=== PATIENT | male | born 1960 | race Caucasian/White ===

== ENCOUNTER 2019-01-19 13:45 | Outpatient (CLI) | payer OTHER | END 2019-01-19 13:46 | disposition home or self-care (01) | LOC: SC 13:45 | PROVIDERS: ATTEND Internal Medicine Pulmonary Disease | DX: G47.33 Obstructive sleep apnea (adult) (pediatric) (principal); E66.9 Obesity, unspecified; Z68.38 Body mass index [BMI] 38.0-38.9, adult | CPT/HCPCS: 99203; 99212 ==

== ENCOUNTER 2019-01-20 19:34 | Outpatient (CLI) | payer OTHER | END 2019-01-20 19:35 | disposition home or self-care (01) | LOC: SC 19:34 | PROVIDERS: ATTEND Internal Medicine Pulmonary Disease | DX: G47.33 Obstructive sleep apnea (adult) (pediatric) (principal); G47.61 Periodic limb movement disorder | CPT/HCPCS: 95810 ==

== ENCOUNTER 2019-03-09 10:03 | Outpatient (CLI) | payer OTHER | END 2019-03-09 10:04 | disposition home or self-care (01) | LOC: SC 10:03 | PROVIDERS: ATTEND Internal Medicine Pulmonary Disease | DX: G47.33 Obstructive sleep apnea (adult) (pediatric) (principal); G47.61 Periodic limb movement disorder | CPT/HCPCS: 99212; 99213 ==

== ENCOUNTER 2020-10-06 11:50 | Outpatient (CLI) | payer OTHER ==
[2020-10-06 12:35] LABS: CREATININE 1.1 mg/dL (0.6-1.2)
== END 2020-10-06 11:51 | disposition home or self-care (01) ==
LOC: DI 11:50
PROVIDERS: ATTEND Internal Medicine
DX: R10.9 Unspecified abdominal pain (principal)
CPT/HCPCS: 36415; 82565

== ENCOUNTER 2020-10-19 08:02 | Outpatient (CLI) | payer OTHER ==
[2020-10-19] MEDS ORDERED: IOVERSOL 320 100 ML VIAL IVP ONE (08:13)
[2020-10-19] MEDS ORDERED: IOVERSOL 320 50 ML VIAL ONE (08:13)
--- NOTE | 2020-10-19 10:51 | CT Report ---
PROCEDURE: ABDOMEN W INDICATIONS: L LOWER QUAD PAIN CONTRAST: IV CONTRAST: Optiray 320 ml: 100 PO CONTRAST: Optiray 320 ml50 TECHNIQUE: After the administration of oral and intravenous contrast, 5 mm thick sections acquired from the diap hragms to below the iliac crests. 5 mm thick coronal and sagittal reformats were acquired. For radi ation dose reduction, the following was used: automated exposure control, adjustment of mA and/or kV according to patient size. COMPARISON: None. FINDINGS: Image quality: Excellent. Lung bases: Lung bases are clear. Heart size is normal. Bilateral gynecomastia. Solid organs: Liver is normal in size. A few small hepatic hypodensities. For example hypodensity seg ment 7 measuring 0.9 cm, (3/22). Gallbladder is nondistended. Calcified gallstone measuring 2.1 cm. Biliary system is non dilated. Pancreas enhances normally. No splenomegaly. No adrenal nodules. Ki dneys are normal in size, without hydronephrosis. Right kidney inferior pole exophytic enhancing mass measuring 2.8 x 2.6 cm, (3/53). Peritoneum and bowel: No bowel obstruction. A few loops of small bowel are mildly prominent in calibe r measuring up to 2.8 cm, (6/18). Colonic diverticulosis. No definite acute diverticulitis. Surgical clips in the left lower quadrant. No fluid collection. No pneumoperitoneum. Nodes and vessels: No retroperitoneal or mesenteric adenopathy by size criteria. Aorta and inferior vena cava are normal in size. Infrarenal IVC filter is in place. Filter arm penetration. No fluid co llection. Bones: No suspicious bony lesions. Moderate DDD. No vertebral body compression fractures. Miscellaneous: No ventral hernias. IMPRESSION: 1. Diverticulosis without definite acute diverticulitis. No fluid collection in the abdomen. 2. Small hepatic hypodensities. Favor benign cyst or hemangioma. -Review of prior cross-sectional imaging if available would be helpful to confirm stability. 3. Infrarenal IVC filter with likely chronic arm penetration. No fluid collection. 4. Exophytic mass at the inferior pole the right kidney measuring 2.8 cm. Suspicious for RCC. -Urology consultation is recommended. -MRI renal protocol could be helpful for further characterization. Reviewed by: Bayron Cano MD on 10/19/2020 10:50 AM PST Approved by: Bayron Cano MD on 10/19/2020 10:50 AM PST Station ID: [id number]
[2020-10-19] MEDS: IOVERSOL 320 50 ML VIAL PO ONE (14:18)
[2020-10-19] MEDS: IOVERSOL 320 100 ML VIAL IVP ONE (14:18)
== END 2020-10-19 08:03 | disposition home or self-care (01) ==
LOC: DI 08:02
DX: K57.30 Diverticulosis of large intestine without perforation or abscess without bleeding (principal); R93.2 Abnormal findings on diagnostic imaging of liver and biliary tract; N28.89 Other specified disorders of kidney and ureter
CPT/HCPCS: 74160; Q9967

== ENCOUNTER 2021-04-17 16:43 | Outpatient (CLI) | payer OTHER | END 2021-04-17 16:44 | disposition home or self-care (01) | LOC: COV 16:43 | PROVIDERS: ATTEND Ophthalmology | DX: Z01.812 Encounter for preprocedural laboratory examination (principal); H25.12 Age-related nuclear cataract, left eye; Z20.822 Contact with and (suspected) exposure to COVID-19 ==

== ENCOUNTER 2021-04-20 08:31 | Day surgery (SDC) | payer OTHER ==
--- OUTSIDE RECORDS SUMMARY | 2021-04-20 08:33 | EXTERNAL MEDICAL SUMMARY RPT | Continuity of Care Document ---
:1960 Demographics Phone Unavailable Preferred Language Japanese Marital Status Unknown Moravian Affiliation Unknown Race Unknown Ethnic Group Unknown Author Organization [facility] Address [address] [phone] Phone Care Team Providers Name Role Phone Nicky Gorman Unavailable Unavailable Allergies Encounters Medications date description facility [id number] Cyclobenzaprine hydrochloride 10 MG Ora l Tablet [facility] [id number] Naproxen 500 MG Oral Tablet [facility] pital Problems Procedures date description facility [id number] General Physician [facility] [id number] Finding [facility] [id number] Diagnosis [facility] Results Vital Signs date measurement value source 20210418 weight_standard 274.54 lb 20210418 weight_metric 124.53 kg 20210418 temperature_standard 97.8 F 20210418 temperature_metric 36.56 C 20210418 respiration_rate 18 /min 20210418 height_standard 77 in 20210418 height_metric 195.58 cm 20210418 heart_rate 55 /min 20210418 BP_systolic 133 mm[Hg] 20210418 BP_diastolic 71 mm[Hg] 20210418 BMI 32.5 kg/m2
[2021-04-20] MEDS ORDERED: TRIAMCIN/MOXIFLOX OPHTHALMIC 0.6 ML VIAL IO ONE ×2 (08:51→10:24)
[2021-04-20] MEDS ORDERED: BRIMONIDINE 0.2% OPHTH DROPS 5 ML ONE (08:52)
[2021-04-20] MEDS ORDERED: BSS/LIDOCAINE/EPINEPHRINE 1 ML SYRINGE ONE (08:52)
[2021-04-20] MEDS ORDERED: TIMOLOL 0.5% OPHTH DROPS ONE (08:52)
[2021-04-20] MEDS ORDERED: VANCOMYCIN OPHTHALMI 8MG/0.8ML 8 MG/0.8 ML SYRINGE IO ONE ×2 (08:52→10:25)
[2021-04-20] MEDS ORDERED: EPINEPHrine 1 MG/ML AMP ONE (08:52)
[2021-04-20] MEDS ORDERED: KETOROLAC 0.45% OPHTH DROPS ONE (09:20)
[2021-04-20] MEDS ORDERED: PROPARACAINE 0.5% OPHTH DROPS 15 ML ONE (09:20)
[2021-04-20] MEDS ORDERED: PROPARACAINE 0.5% OPHTH DROPS 15 ML LEFTEYE ONE (09:32)
[2021-04-20] MEDS ORDERED: CYCLOPENTOLATE 2% OPHTH DROPS 2 ML LEFTEYE ONE (09:40)
[2021-04-20] MEDS ORDERED: PHENYLEPHRINE 2.5% OPHTH 2 ML DROPS LEFTEYE ONE (09:40)
[2021-04-20] MEDS ORDERED: LACTATED RINGERS 500 ML IV ONE ×2 (09:43→10:35)
--- NOTE | 2021-04-20 10:08 | ANESTHESIA ---
Pre-Anesthesia VS, & Labs - Diagnosis L nuclear sclerotic cataract - Procedure L extraction cataract w/IOL Vital Signs: Temp Pulse Resp BP Pulse Ox 36.5 C 50 L 14 142/85 H 99 04/20/21 09:27 04/20/21 09:27 04/20/21 09:27 04/20/21 09:27 04/20/21 09:27 Height: 6 ft 5 in Weight (kg): 125 kg Body Mass Index: 32.6 BMI Classification: Obese - NPO >8 hours - Lab Results Lab results reviewed: Yes Home Medications and Allergies Home Medications: Ambulatory Orders Diltiazem HCl [Tiazac] 180 mg PO BID 04/19/21 LORazepam [Lorazepam] 2 mg PO DAILY 04/19/21 Melatonin 12 mg PO DAILY PM 04/19/21 Metoprolol Tartrate [Lopressor] 100 mg PO BID 04/19/21 Omeprazole Magnesium 20 mg PO DAILY 04/19/21 Rivaroxaban [Xarelto] 20 mg PO DAILY 04/19/21 traZODone [Desyrel] 200 mg PO HS 04/19/21 Diltiazem HCl [Tiazac] 180 mg PO BID 04/19/21 LORazepam [Lorazepam] 2 mg PO DAILY 04/19/21 Melatonin 12 mg PO DAILY PM 04/19/21 Metoprolol Tartrate [Lopressor] 100 mg PO BID 04/19/21 Omeprazole Magnesium 20 mg PO DAILY 04/19/21 Rivaroxaban [Xarelto] 20 mg PO DAILY 04/19/21 traZODone [Desyrel] 200 mg PO HS 04/19/21 Allergies/Adverse Reactions: Allergies Allergy/AdvReac Type Severity Reaction Status Date / Time No Known Drug Allergies Allergy Verified 04/19/21 15:32 Anes History & Medical History - Anesthetic History Anesthesia Complications: reports: No previous complications Family history of Anesthesia Complications: Denies Family history of Malignant Hyperthermia: Denies - Medical History Cardiovascular: reports: Congestive heart failure, Hypertension, High cholesterol, Deep vein thrombosis, Atrial fibrillation (intermittent, NSR today) Pulmonary: reports: Sleep apnea Gastrointestinal: reports: GERD, Hiatal hernia Urinary: reports: None Musculoskeletal: reports: Osteoarthritis, Chronic back pain Endocrine/Autoimmune: reports: None Skin: reports: None - Surgical History General: reports: Appendectomy Orthopedic: reports: Knee replacement, Other Exam General: Alert, Oriented x3, Cooperative Dental: WNL Mouth Openin Fingerbreadth Neck Mobility: Normal Mallampati classification: II Thyromental Distance: 4-6 cm Respiratory: Lungs clear, Normal breath sounds, No respiratory distress Cardiovascular: Regular rate Mental/Cognitive Status: Alert/Oriented X3 Cognitive Status: Within normal limits Plan Anesthesia Type: MAC Consent for Procedure(s) Verified and Reviewed: Yes Code Status: Attempt Resuscitation ASA classification: 3-Severe systemic disease Is this case an emergency?: No
[2021-04-20] MEDS ORDERED: MIDAZOLAM 2 MG/2 ML VIAL ONE (10:12)
[2021-04-20] MEDS ORDERED: fentaNYL 100 MCG/2 ML VIAL ONE (10:21)
[2021-04-20] MEDS ORDERED: BRIMONIDINE 0.2% OPHTH DROPS 5 ML OPTH ONE (10:23)
[2021-04-20] MEDS ORDERED: EPINEPHrine 1 MG/ML AMP IR ONE (10:23)
[2021-04-20] MEDS ORDERED: TIMOLOL 0.5% OPHTH DROPS OPTH ONE (10:24)
[2021-04-20] MEDS ORDERED: CHONDR SULF/HYALURONATE SYRINGE IO ONE (10:24)
[2021-04-20] MEDS ORDERED: BSS/LIDOCAINE/EPINEPHRINE 1 ML SYRINGE IO ONE (10:24)
[2021-04-20] MEDS ORDERED: PROPARACAINE 0.5% OPHTH DROPS 15 ML EACHEYE ONE (10:24)
--- NOTE | 2021-04-20 10:40 | OPERATIVE REPORT ---
Operative Report - Other Other Information/Narrative: Date of Surgery: 04/20/21 Preop Dx: Visually significant cataract left eye. This was the first cataract surgery. Postop Dx: Same Procedure: Phacoemulsification with posterior chamber intraocular lens implant left eye Surgeon: Dr. Ismael Ferrara Anesthesia: Monitored anesthesia care Complications: None Operative Indications: This is a 60-year-old M with progressive vision loss in the left eye due to 2+ nuclear sclerotic.. Best corrected visual acuity was 20/30 with glare to 20/50 vision in the left eye. Indications for surgery were: - Overall decrease in vision - Difficultydriving in low light or at night - Difficulty driving at night because of headlights from other vehicles - Difficulty tracking a golf ball The patient was consented at length concerning the risks and benefits of cataract surgery after which the patient expressed a desire to proceed with surgery. Operative Procedure: The patient was taken into OR#3 and placed under monitored anesthesia care. A surgical time-out was conducted confirming correct patient, correct procedure, and correct surgical site. The patient was given topical anesthesia and then prepped and draped in the usual sterile fashion. The eye was entered at the 6 and 3 oclock positions. Intracameral Shugarcaine was injected into the anterior chamber followed by a dispersive viscoelastic. A continuous-tear curvilinear capsulorhexis was performed. The nucleus was hydrodissected and phacoemulsified. The cortex was evacuated using automated infusion and aspiration. A cohesive viscoelastic was injected into the capsular bag and a 13.5 diopter intraocular lens was inserted into the bag. Infusion and aspiration were used to evacuate the viscoelastic materials from the eye. The wounds were hydrated and the eye inflated to physiologic pressure using balanced salt solution. Approximately 0.25ml of a mixture of triamcinolone and moxifloxacin was injected trans-sclerally into the vitreous in the inferotem poral quadrant using a 30 gauge cannula. An additional 0.55ml of a mixture of triamcinolone, moxifloxacin, and vancomycin was injected subconjunctivally in the superior quadrant for infection and inflammation prophylaxis. Wound integrity was checked with Weck-Shanae sponges. The patient was taken from the operating room in good condition and given post-op instructions.
[2021-04-20 10:52] VITALS: BP 128/84
--- NOTE | 2021-04-20 13:43 | ANESTHESIA POST OP EVALUATION ---
Anesthesia Post Eval - Post Anesthesia Eval Vitals: Last Vital Signs Temp 36.6 C 04/20/21 10:50 Pulse 50 L 04/20/21 10:50 Resp 16 04/20/21 10:50 BP 128/84 H 04/20/21 10:50 Pulse Ox 96 04/20/21 10:50 CV Function Including HR & BP: Stable Pain Control: Satisfactory Nausea & Vomiting: Negative Mental Status: Baseline Respiratory Status: Airway Patent Hydration Status: Satisfactory Anesthesia Complications: None
== END 2021-04-20 08:32 | disposition home or self-care (01) ==
LOC: SDS 08:31
PROVIDERS: ATTEND Ophthalmology
DX: H25.12 Age-related nuclear cataract, left eye (principal); I48.91 Unspecified atrial fibrillation; Z79.01 Long term (current) use of anticoagulants; G47.33 Obstructive sleep apnea (adult) (pediatric); E66.9 Obesity, unspecified; Z68.32 Body mass index [BMI] 32.0-32.9, adult; Z79.899 Other long term (current) drug therapy
CPT/HCPCS: 66984; A9270; J3490; J7120

== ENCOUNTER 2021-06-01 06:33 | Day surgery (SDC) | payer OTHER ==
[~2021-06-01 06:33] MED LIST: CYCLOPENTOLATE 1% OPHTH DROPS 2 ML ONE; KETOROLAC 0.45% OPHTH DROPS ONE; PHENYLEPHRINE 2.5% OPHTH 2 ML DROPS ONE; PROPARACAINE 0.5% OPHTH DROPS 15 ML ONE
[2021-06-01] MEDS ORDERED: EPINEPHrine 1 MG/ML AMP ONE (06:54)
[2021-06-01] MEDS ORDERED: BSS/LIDOCAINE/EPINEPHRINE 1 ML SYRINGE ONE (06:54)
[2021-06-01] MEDS ORDERED: VANCOMYCIN OPHTHALMI 8MG/0.8ML 8 MG/0.8 ML SYRINGE IO ONE ×2 (06:54→08:14)
[2021-06-01] MEDS ORDERED: TRIAMCIN/MOXIFLOX OPHTHALMIC 0.6 ML VIAL IO ONE ×2 (06:54→08:14)
[2021-06-01] MEDS ORDERED: BRIMONIDINE 0.2% OPHTH DROPS 5 ML ONE (06:54)
[2021-06-01] MEDS ORDERED: TIMOLOL 0.5% OPHTH DROPS ONE (06:54)
[2021-06-01] MEDS ORDERED: LACTATED RINGERS 1,000 ML IV ONE ×2 (06:58→08:22)
--- NOTE | 2021-06-01 07:22 | ANESTHESIA ---
Pre-Anesthesia VS, & Labs - Diagnosis R cataract - Procedure R PhacoIOL Vital Signs: Temp Pulse Resp BP Pulse Ox 36 C L 56 L 14 141/77 H 96 06/01/21 07:00 06/01/21 07:00 06/01/21 07:00 06/01/21 07:00 06/01/21 07:00 Height: 6 ft 5 in Weight (kg): 123.6 kg Body Mass Index: 32.3 BMI Classification: Obese - NPO >8 hours Home Medications and Allergies Melatonin 12 mg PO DAILY PM 04/19/21 Metoprolol Tartrate [Lopressor] 100 mg PO BID 04/19/21 Omeprazole Magnesium 20 mg PO DAILY 04/19/21 Rivaroxaban [Xarelto] 20 mg PO DAILY 04/19/21 dilTIAZem HCL [Tiazac] 180 mg PO BID 04/19/21 traZODone [Desyrel] 200 mg PO HS 04/19/21 Allergies/Adverse Reactions: Allergies Allergy/AdvReac Type Severity Reaction Status Date / Time No Known Drug Allergies Allergy Verified 04/19/21 15:32 Anes History & Medical History - Anesthetic History Anesthesia Complications: reports: No previous complications Family history of Anesthesia Complications: Denies Family history of Malignant Hyperthermia: Denies - Medical History Cardiovascular: reports: Congestive heart failure, Hypertension, High cholesterol, Atrial fibrillation Pulmonary: reports: Sleep apnea Gastrointestinal: reports: GERD Urinary: reports: None Musculoskeletal: reports: None Endocrine/Autoimmune: reports: None Skin: reports: None - Surgical History Orthopedic: reports: Knee replacement, Other Exam General: Alert, Oriented x3, Cooperative Dental: WNL Mouth Openin Fingerbreadth Neck Mobility: Normal Mallampati classification: II Thyromental Distance: 4-6 cm Respiratory: Lungs clear Plan Anesthesia Type: MAC Consent for Procedure(s) Verified and Reviewed: Yes Code Status: Attempt Resuscitation ASA classification: 3-Severe systemic disease Is this case an emergency?: No
[2021-06-01] MEDS ORDERED: MIDAZOLAM 2 MG/2 ML VIAL ONE (07:38)
[2021-06-01] MEDS ORDERED: fentaNYL 100 MCG/2 ML VIAL ONE (07:41)
[2021-06-01] MEDS ORDERED: BRIMONIDINE 0.2% OPHTH DROPS 5 ML OPTH ONE (08:12)
[2021-06-01] MEDS ORDERED: EPINEPHrine 1 MG/ML AMP IR ONE (08:12)
[2021-06-01] MEDS ORDERED: BSS/LIDOCAINE/EPINEPHRINE 1 ML SYRINGE IO ONE (08:13)
[2021-06-01] MEDS ORDERED: TIMOLOL 0.5% OPHTH DROPS OPTH ONE (08:13)
[2021-06-01] MEDS ORDERED: CHONDR SULF/HYALURONATE SYRINGE IO ONE (08:13)
[2021-06-01] MEDS ORDERED: PROPARACAINE 0.5% OPHTH DROPS 15 ML EACHEYE ONE (08:14)
[2021-06-01 08:32] VITALS: BP 120/67
--- NOTE | 2021-06-01 08:33 | OPERATIVE REPORT ---
Operative Report - Other Other Information/Narrative: Date of Surgery: 06/01/21 Preop Dx: Visually significant cataract right eye. Cataract surgery was performed in the left eye on 03/31/21. Postop Dx: Same Procedure: Phacoemulsification with posterior chamber intraocular lens implant right eye Surgeon: Dr. Ismael Ferrara Anesthesia: Monitored anesthesia care Complications: None Operative Indications: This is a 60-year-old M with progressive vision loss in the right eye due to 2+ nuclear sclerotic cataract. Best corrected visual acuity was 20/50 with glare to 20/70 vision in the right eye. Indications for surgery were: - Overall decrease in vision - Difficulty seeing words on a computer screen - Difficulty reading - Difficulty driving in low light or at night - Difficulty driving at night because of headlights from other vehicles - Difficulty tracking a golf ball - Decreased acuity with firearms The patient was consented at length concerning the risks and benefits of cataract surgery after which the patient expressed a desire to proceed with surgery. Operative Procedure: The patient was taken into OR#3 and placed under monitored anesthesia care. A surgical time-out was conducted confirming correct patient, correct procedure, and correct surgical site. The patient was given topical anesthesia and then prepped and draped in the usual sterile fashion. The eye was entered at the 6 and 3 oclock positions. Intracameral Shugarcaine was injected into the anterior chamber followed by a dispersive viscoelastic. A continuous-tear curvilinear capsulorhexis was performed. The nucleus was hydrodissected and phacoemulsified. The cortex was evacuated using automated infusion and aspiration. A cohesive viscoelastic was injected into the capsular bag and a 11.5 diopter intraocular lens was inserted into the bag. Infusion and aspiration were used to evacuate the viscoelastic materials from the eye. The wounds were hydrated and the eye inflated to physiologic pressure using balanced salt solution. Approximately 0.25ml of a mixture of triamcinolone and moxifloxacin was injected trans-sclerally into the vitreous in the inferotemporal quadrant using a 30 gauge cannula. An additional 0.55ml of a mixture of triamcinolone, moxifloxacin, and vancomycin was injected subconjunctivally in the superior quadrant for infection and inflammation prophylaxis. Wound integrity was checked with Weck-Shanae sponges. The patient was taken from the operating room in good condition and given post-op instructions.
--- NOTE | 2021-06-01 10:02 | ANESTHESIA POST OP EVALUATION ---
Anesthesia Post Eval - Post Anesthesia Eval Vitals: Last Vital Signs Temp 36 C L 06/01/21 08:31 Pulse 57 L 06/01/21 08:31 Resp 12 06/01/21 08:31 BP 120/67 06/01/21 08:31 Pulse Ox 96 06/01/21 08:31 CV Function Including HR & BP: Stable Pain Control: Satisfactory Nausea & Vomiting: Negative Mental Status: Baseline Respiratory Status: Airway Patent Hydration Status: Satisfactory Anesthesia Complications: None
== END 2021-06-01 06:34 | disposition home or self-care (01) ==
LOC: SDS 06:33
PROVIDERS: ATTEND Ophthalmology
DX: H25.11 Age-related nuclear cataract, right eye (principal); Z98.42 Cataract extraction status, left eye; E66.9 Obesity, unspecified; Z68.32 Body mass index [BMI] 32.0-32.9, adult; I11.0 Hypertensive heart disease with heart failure; I50.9 Heart failure, unspecified; G47.33 Obstructive sleep apnea (adult) (pediatric); I48.91 Unspecified atrial fibrillation
CPT/HCPCS: 66984; A9270; J3490; J7120

== ENCOUNTER 2022-11-15 11:22 | Outpatient (CLI) | payer OTHER ==
--- NOTE | 2022-11-15 17:06 | XRAY Report ---
PROCEDURE: Knee 3 View LT INDICATIONS: L KNEE PX TECHNIQUE: 3 views of the left knee(s) were acquired. COMPARISON: None. FINDINGS: Bones: Patient is status post prior left total knee arthroplasty. Left knee alignment is anatomic. N o gross hardware loosening or failure. No fractures or dislocations. No suspicious bony lesions. Soft tissues: No joint effusion. No suspicious soft tissue calcifications. IMPRESSION: Prior left total knee arthroplasty. Anatomic left knee alignment. No fracture or disloca tion. No gross hardware complication. No significant joint effusion. Reviewed by: Charles Phelps MD on 11/15/2022 5:04 PM PST Approved by: Charles Phelps MD on 11/15/2022 5:04 PM PST Station ID: [id number]
== END 2022-11-15 11:23 | disposition home or self-care (01) ==
LOC: DI.N 11:22
PROVIDERS: ATTEND Internal Medicine
DX: M25.562 Pain in left knee (principal); Z96.652 Presence of left artificial knee joint

== ENCOUNTER 2023-09-02 09:34 | Outpatient (CLI) | payer OTHER ==
--- NOTE | 2023-09-02 14:20 | MRI Report ---
PROCEDURE: CERVICAL SPINE WO INDICATIONS: NECK PAIN TECHNIQUE: Noncontrast sagittal T1 spin echo and T2 fast spin echo, sagittal STIR, foraminal oblique sagittal T2 fast spin echo, and axial gradient echo or T2 fast spin echo through the cervical spine. COMPARISON: None. FINDINGS: Image quality: Excellent. Alignment and Curvature: There is normal bony alignment. Bone Marrow: Marrow demonstrates normal overall signal. Spinal Cord: Visualized spinal cord has normal size and signal. No cerebellar tonsillar herniation. Paraspinous Soft Tissues: No paravertebral masses. Prevertebral soft tissues are normal in thicknes s. C2-C3: No disc bulge. The foramina and central canal are patent. C3-C4: No significant disc bulge. Uncovertebral hypertrophy and facet hypertrophy cause mild bilate ral foraminal stenosis. The central canal is patent. C4-C5: No significant disc bulge. Uncovertebral hypertrophy and facet hypertrophy. Severe bilateral foraminal stenosis. The central canal is patent. C5-C6: No significant disc bulge. Uncovertebral hypertrophy and facet hypertrophy. Severe left murray inal stenosis. Moderate right foraminal stenosis. The central canal is patent. C6-C7: No disc bulge. The foramina and central canal are patent. C7-T1: No disc bulge. The foramina and central canal are patent. IMPRESSION: 1. Multilevel cervical spondylosis causing foraminal stenosis at multiple levels primarily due to unc overtebral hypertrophy. 2. No central canal stenosis. 3. No abnormal cord signal. Reviewed by: Lorenzo Slade on 09/02/2023 2:19 PM PDT Approved by: Lorenzo Slade on 09/02/2023 2:19 PM PDT Station ID: [id number]
== END 2023-09-02 09:35 | disposition home or self-care (01) ==
LOC: DI 09:34
PROVIDERS: ATTEND Internal Medicine
DX: M47.812 Spondylosis without myelopathy or radiculopathy, cervical region (principal)

== ENCOUNTER 2023-11-08 15:47 | Outpatient (CLI) | payer OTHER ==
--- NOTE | 2023-11-09 09:41 | Ultrasound Report ---
PROCEDURE: Retroperitoneal INDICATIONS: RENAL MASS TECHNIQUE: Real-time scanning was performed of the retroperitoneal organs, with image documentation. COMPARISON: CT abdomen 10/19/2020. FINDINGS: Kidneys: Kidneys are normal in size. Right kidney measures 13.0 cm long; left kidney measures 12.9 cm long. Right renal cortical thickness is 1.9 cm; left renal cortical thickness is 1.6 cm. No dennise d masses, hydronephrosis, or nephrolithiasis. At the interpolar region of the right kidney, there is an exophytic circumscribed anechoic cyst measuring 3.1 x 2.9 x 3.1 cm. No solid renal mass is seen. Bladder: Pre-void bladder volume is 955 mL. Post-void residual is 20 mL. Pre-void images demonstra te no intraluminal masses or stones. On pre-void images, bilateral ureteral jets are noted with colo r Doppler interrogation. (Of note, ureteral jets may not be detectable in up to 25% of cases due to insufficient differences in specific gravity between ureteral and bladder urine). Miscellaneous: No free abdominal fluid. Prostate is enlarged and measures 5.2 x 4.2 x 5.3 cm. IMPRESSION: Exophytic 3.1 cm cyst in the right kidney likely corresponds to the masslike lesion seen on CT from 12/19/2019 and is considered benign. No solid renal mass is seen. Reviewed by: Zion Bae MD on 11/09/2023 9:39 AM PST Approved by: Zion Bae MD on 11/09/2023 9:39 AM PST Station ID: [id number]
== END 2023-11-08 15:48 | disposition home or self-care (01) ==
LOC: DI 15:47
PROVIDERS: ATTEND Internal Medicine
DX: N28.89 Other specified disorders of kidney and ureter (principal); N28.1 Cyst of kidney, acquired

== ENCOUNTER 2023-11-15 08:20 | Outpatient (CLI) | payer OTHER ==
[2023-11-15 12:36] LABS: BASOPHILS % (AUTO) 0.4 %; EOSINOPHILS # (AUTO) 0.1 10^3/uL (0.0-0.7); EOSINOPHILS % (AUTO) 1.3 %; HCT - HEMATOCRIT 44.9 % (42.0-52.0); HGB - HEMOGLOBIN 14.9 g/dL (14.0-18.0); LYMPHOCYTES # (AUTO) 1.6 10^3/uL (1.5-3.5); LYMPHOCYTES % (AUTO) 23.3 %; MEAN CORPUSCULAR HEMOGLOBIN 31.1 pg (27.0-31.0); MEAN CORPUSCULAR HGB CONC 33.2 g/dL (32.0-36.0); MEAN CORPUSCULAR VOLUME 93.7 fL (80.0-94.0); MEAN PLATELET VOLUME 9.7 fL (7.4-11.4); MONOCYTES # (AUTO) 0.5 10^3/uL (0.0-1.0); MONOCYTES % (AUTO) 7.5 %; NEUTROPHILS # (AUTO) 4.7 10^3/uL (1.5-6.6); NEUTROPHILS % (AUTO) 67.2 %; PLT - PLATELET COUNT 191 10^3/uL (130-450); RED BLOOD COUNT 4.79 10^6/uL (4.70-6.10); RED CELL DISTRIBUTION WIDTH 12.9 % (12.0-15.0); WHITE BLOOD COUNT 6.9 x10^3/uL (4.8-10.8)
[2023-11-15 13:29] LABS: PSA TOTAL 1.913 ng/mL (0.000-2.000)
[2023-11-15 13:31] LABS: ALBUMIN 4.5 g/dL (3.2-5.5); ALBUMIN/GLOBULIN RATIO 1.6 (1.0-2.2); ALKALINE PHOSPHATASE 40 IU/L (42-121); ALT ALANINE AMINOTRANSFERASE 22 IU/L (10-60); AST ASPARTATE AMINOTRANSFERASE 25 IU/L (10-42); BILIRUBIN,TOTAL 0.9 mg/dL (0.2-1.0); BUN - BLOOD UREA NITROGEN 17 mg/dL (6-20); CALCIUM 9.7 mg/dL (8.5-10.3); CARBON DIOXIDE - CO2 26 mmol/L (21-32); CHLORIDE 103 mmol/L (101-111); CHOL/HDL RATIO 2.8 (<5.0); CHOLESTEROL 175 mg/dL; CREATININE 1.1 mg/dL (0.6-1.3); GFR - MDRD 67 (>89); GLUCOSE 107 mg/dL (74-104); HDL CHOLESTEROL 62 mg/dL; LDL CHOLESTEROL,CALCULATED 100 mg/dL; LDL/HDL RATIO 1.6 (<3.6); POTASSIUM 4.5 mmol/L (3.5-4.5); SODIUM 139 mmol/L (135-145); TOTAL PROTEIN 7.4 g/dL (6.4-8.9); TRIGLYCERIDES 67 mg/dL (48-352); VLDL CHOLESTEROL 13 mg/dL
[2023-11-15 13:37] LABS: THYROID STIMULATING HORMONE 0.93 uIU/mL (0.34-5.60)
== END 2023-11-15 08:21 | disposition home or self-care (01) ==
LOC: LAB.N 08:20
PROVIDERS: ATTEND Internal Medicine
DX: Z00.00 Encounter for general adult medical examination without abnormal findings (principal); I48.91 Unspecified atrial fibrillation; F31.9 Bipolar disorder, unspecified; J44.9 Chronic obstructive pulmonary disease, unspecified; I11.0 Hypertensive heart disease with heart failure; G62.9 Polyneuropathy, unspecified
CPT/HCPCS: 36415; 80053; 80061; 83721; 84153; 84443; 85025

== ENCOUNTER 2024-01-25 09:53 | Emergency (ER) | payer OTHER ==
[2024-01-25 10:40] LABS: BILIRUBIN,URINE NEGATIVE (NEGATIVE); GLUCOSE, URINE (UA) NEGATIVE (NEGATIVE); KETONES,URINE (UA) NEGATIVE (NEGATIVE); LEUKOCYTE ESTERASE, URINE NEGATIVE (NEGATIVE); NITRITE,URINE NEGATIVE (NEGATIVE); OCCULT BLOOD,URINE NEGATIVE (NEGATIVE); PH,URINE 6.5 PH (5.0-7.5); PROTEIN,URINE NEGATIVE (NEGATIVE); UROBILINOGEN,URINE 0.2 (NORMAL) E.U./dL (NORMAL)
[2024-01-25 10:48] LABS: CLARITY,URINE CLEAR (CLEAR)
[2024-01-25 10:49] LABS: BASOPHILS % (AUTO) 0.4 %; EOSINOPHILS # (AUTO) 0.1 10^3/uL (0.0-0.7); EOSINOPHILS % (AUTO) 1.4 %; HCT - HEMATOCRIT 41.5 % (42.0-52.0); HGB - HEMOGLOBIN 13.9 g/dL (14.0-18.0); LYMPHOCYTES # (AUTO) 1.5 10^3/uL (1.5-3.5); LYMPHOCYTES % (AUTO) 17.8 %; MEAN CORPUSCULAR HEMOGLOBIN 29.8 pg (27.0-31.0); MEAN CORPUSCULAR HGB CONC 33.5 g/dL (32.0-36.0); MEAN CORPUSCULAR VOLUME 89.1 fL (80.0-94.0); MEAN PLATELET VOLUME 8.8 fL (7.4-11.4); MONOCYTES # (AUTO) 0.5 10^3/uL (0.0-1.0); MONOCYTES % (AUTO) 6.2 %; NEUTROPHILS # (AUTO) 6.3 10^3/uL (1.5-6.6); PLT - PLATELET COUNT 194 10^3/uL (130-450); RED BLOOD COUNT 4.66 10^6/uL (4.70-6.10); RED CELL DISTRIBUTION WIDTH 12.8 % (12.0-15.0); WHITE BLOOD COUNT 8.6 x10^3/uL (4.8-10.8)
--- NOTE | 2024-01-25 10:58 | ED Physician Documentation ---
PD HPI ABD PAIN - Stated complaint Stated Complaint: LOWER STOMACH PX - Chief complaint Chief Complaint: Abd Pain - History obtained from History obtained from: Patient - History of Present Illness Timing - onset: How many months ago (1) Timing - duration: Months (1) Timing - details: Gradual onset, Still present, Waxing and waning Quality: Cramping, Aching, Pain Location: Periumbilical, Suprapubic, LLQ Radiation: No: Chest, Lower back, Left flank Improved by: BM, Other (hurts with urinating, but more comfortable lower abd after voiding. He does feel taht he is emptying when goes.). No: Eating Worsened by: No: Eating Associated symptoms: Nausea, Dysuria. No: Fever, Vomiting, Diarrhea, Constipation, Hematuria, Loss of appetite, Testicular pain Similar symptoms before: Has not had sx before Recently seen: Clinic, Emergency Dept (seen at [facility] emergency dept few weeks ago and Dx with UTI. Rx with Cipro but no improvement in symptoms. Seen at [facility] yesterday and Rx doxycycline for presume persistent UTI given his symptoms. He states no better and cramps worse.), Other (he had hematoma in leg month ago and was to get it evacuated by ortho but they did not want to with current UTI symptoms. Had ordered labs of ESR, CRP, CBC and chemistry. I was getting CBC and chem panel here today, so added the ESR, CRP onto it.) Review of Systems Constitutional: denies: Fever, Chills, Myalgias GI: reports: Abdominal Pain, Nausea. denies: Vomiting, Constipation, Diarrhea : reports: Dysuria, Frequency. denies: Hesitancy, Discharge Skin: denies: Rash, Lesions PD PAST MEDICAL HISTORY - Past Medical History Cardiovascular: Congestive heart failure, Hypertension, High cholesterol, Atrial fibrillation Respiratory: Sleep apnea Endocrine/Autoimmune: None GI: GERD : None HEENT: None Psych: Depression Musculoskeletal: None Derm: None - Past Surgical History Ortho: Knee replacement, Other - Present Medications Home Medications: Ambulatory Orders Medication Instructions Recorded Confirmed Melatonin 12 mg PO DAILY PM 04/19/21 06/01/21 Metoprolol Tartrate [Lopressor] 100 mg PO BID 04/19/21 06/01/21 Omeprazole Magnesium 20 mg PO DAILY 04/19/21 06/01/21 Rivaroxaban [Xarelto] 20 mg PO DAILY 04/19/21 06/01/21 dilTIAZem HCL [Tiazac] 180 mg PO BID 04/19/21 06/01/21 traZODone [Desyrel] 200 mg PO HS 04/19/21 06/01/21 Docusate Sodium 100Mg Capsule 100 mg PO DAILY #20 cap 01/25/24 [Colace 100Mg Capsule] Doxycycline Hyclate 100 mg PO BID 7 Days #14 cap 01/25/24 Meloxicam [Mobic] 7.5 mg PO BID 10 Days #20 tablet 01/25/24 - Allergies Allergies/Adverse Reactions: Allergies Allergy/AdvReac Type Severity Reaction Status Date / Time No Known Drug Allergies Allergy Verified 01/25/24 10:14 - Social History Does the pt smoke?: No Smoking Status: Never smoker Does the pt drink ETOH?: No Does the pt have substance abuse?: No PD ED PE NORMAL - Vitals Vital signs reviewed: Yes - General General: Alert and oriented X 3, Well developed/nourished - Cardiac Cardiac: RRR, No murmur - Respiratory Respiratory: Clear bilaterally - Abdomen Abdomen: Normal bowel sounds, Soft, Non distended, No organomegaly, Other (tender left lower abd and suprapubic area with some local guarding but no percussion nor rebound tenderness. ) - Male Male : Other (no noted rash nor sores. ) - Rectal Rectal: Deferred - Back Back: No CVA TTP - Derm Derm: Normal color, Warm and dry - Extremities Extremities: Normal ROM s pain, No edema, No calf tenderness / cord - Neuro Neuro: Alert and oriented X 3, No motor deficit, Normal speech Results - Vitals Vitals: Vital Signs - 24 hr 01/25/24 15:07 Heart Rate 74 Respiratory 18 Rate Blood Pressure 147/94 H O2 Saturation 99 Oxygen O2 Source Room air - Labs Labs: Laboratory Tests 01/25/24 01/25/24 01/25/24 10:38 10:45 10:45 WBC 8.6 RBC 4.66 L Hgb 13.9 L Hct 41.5 L MCV 89.1 MCH 29.8 MCHC 33.5 RDW 12.8 Plt Count 194 MPV 8.8 Neut # (Auto) 6.3 Lymph # (Auto) 1.5 Becker # (Auto) 0.5 Eos # (Auto) 0.1 Baso # (Auto) 0.0 Absolute Nucleated RBC 0.00 Nucleated RBC % 0.0 ESR Sodium 131 L Potassium 4.3 Chloride 100 L Carbon Dioxide 23 Anion Gap 8.0 BUN 24 H Creatinine 1.0 Estimated GFR (MDRD) 75 L Glucose 127 H Calcium 9.6 Total Bilirubin 0.8 AST 38 ALT 20 Alkaline Phosphatase 47 C-Reactive Protein Total Protein 7.3 Albumin 4.2 Globulin 3.1 Albumin/Globulin Ratio 1.4 Lipase 55 Free PSA % Free PSA Total PSA Urine Color YELLOW Urine Clarity CLEAR Urine pH 6.5 Ur Specific [place] 1.010 Urine Protein NEGATIVE Urine Glucose (UA) NEGATIVE Urine Ketones NEGATIVE Urine Occult Blood NEGATIVE Urine Nitrite NEGATIVE Urine Bilirubin NEGATIVE Urine Urobilinogen 0.2 (NORMAL) Ur Leukocyte Esterase NEGATIVE Ur Microscopic Review NOT INDICATED Urine Culture Comments NOT INDICATED 01/25/24 01/25/24 01/25/24 10:45 10:45 10:45 WBC RBC Hgb Hct MCV MCH MCHC RDW Plt Count MPV Neut # (Auto) Lymph # (Auto) Becker # (Auto) Eos # (Auto) Baso # (Auto) Absolute Nucleated RBC Nucleated RBC % ESR 7 Sodium Potassium Chloride Carbon Dioxide Anion Gap BUN Creatinine Estimated GFR (MDRD) Glucose Calcium Total Bilirubin AST ALT Alkaline Phosphatase C-Reactive Protein < 0.5 Total Protein Albumin Globulin Albumin/Globulin Ratio Lipase Free PSA 0.359 % Free PSA 18 L Total PSA 1.975 Urine Color Urine Clarity Urine pH Ur Specific [place] Urine Protein Urine Glucose (UA) Urine Ketones Urine Occult Blood Urine Nitrite Urine Bilirubin Urine Urobilinogen Ur Leukocyte Esterase Ur Microscopic Review Urine Culture Comments - Rads (name of study) abd/pelvic CT Relevant Findings:: Prelim report reviewed (again noted right renal exophytic mass concerning for tumor. multiple diverticula without diverticulitis. No stones. ), EMP independent interpretation of test PD Medical Decision Making - ED course Complexity details: reviewed results (CT showing diverticula multiple but no diverticultiis. No stones. Renal mass noted suspicious for renal cell CA, suggest imaging. However this had been seen before and had US of kidney September 2023 for it, with Dx of simple cyst. It is bigger now, so consider re-imaging near future. ), re-evaluated patient (improved pain with IV meds. He was Rx doxycycline for presume persistent UTI yesterday so not much time for effect. Did PSA here and normal range so less likely prostatitis, and not seen on CT to be. I presume provider was consider urethritis rather than standar UTI. Can go with the doxysxycline. ), considered differential, d/w patient Reviewed Lab Results: pt had lab order for CBC, chem panel and ESR, CRP from his ortho to do prior to hematoma evacuation. I added the ESR, CRP to labs today so will be done. Results are normal. WBC also nromal. ED course: No alternate explanation by CT. diverticula without diverticulitis. Recent Rx for dosycycline. Presume targeting urethritis since not clearly UTI by UA, but dysuria symptoms. No diverticultiis seen so consideed but did not add Augmentin at this time. Can give NSAIDs regularly for consideration of interstitial cystitis given symptoms with nondiagnostic UA. He states some mild constipation from pain meds so docusdate as well. Has some pain meds still at home from recent Rx month ago. Departure - Departure Disposition: , Self Care Clinical Impression: Lower abdominal pain, Dysuria, Renal cyst Condition: Stable Record reviewed to determine appropriate education?: Yes Instructions: ED Abdominal Pain Unkn Cause Male Follow-Up: Nicky Barrera MD [Primary Care Provider] - Prescriptions: Docusate Sodium 100Mg Capsule [Colace 100Mg Capsule] 100 mg PO DAILY #20 cap Doxycycline Hyclate 100 mg PO BID 7 Days #14 cap Meloxicam [Mobic] 7.5 mg PO BID 10 Days #20 tablet Comments: Your CT scan does not show any obvious acute cause for your pain. You do have incidental findings of some gallstones but no signs of gallbladder inflammation. You do have some diverticula present along the colon but no localized signs of diverticulitis. They do describe a mass on your kidney and suggest further follow-up imaging. However your prior ultrasound in September was to look specifically at that. So this is a known quantity and the ultrasound in September described it as a simple cyst. Therefore the reading from today I do not believe needs following up on. Otherwise again no other description of a cause for pain. Blood test rg your urine test looked okay at this point. Your PSA for prostate is in the normal range so no signs of obvious inflammation there. Lacking specific other diagnosis, I would have you continue with the previous thought of a bladder infection given your symptoms localized to that. I wrote the prescription for the doxycycline. In addition I would suggest some anti- inflammatory and stool softener for consideration of intestinal inflammation or irritation being a cause of your pain instead. I printed out your prescriptions for these. Follow-up with your primary if not improved over the next few days and return if worse. Forms: PCP List Discharge Date/Time: 01/25/24 15:09
[2024-01-25 11:06] LABS: ALBUMIN 4.2 g/dL (3.2-5.5); ALBUMIN/GLOBULIN RATIO 1.4 (1.0-2.2); BILIRUBIN,TOTAL 0.8 mg/dL (0.2-1.0); CALCIUM 9.6 mg/dL (8.5-10.3); POTASSIUM 4.3 mmol/L (3.5-4.5); TOTAL PROTEIN 7.3 g/dL (6.4-8.9)
[2024-01-25] MEDS ORDERED: IOVERSOL 320 100 ML VIAL IVP ONE (11:51)
[2024-01-25] MEDS: SODIUM CHLORIDE 0.9% 1,000 ML IV STA (11:55)
[2024-01-25] MEDS: KETOROLAC 15 MG/ML VIAL IVP STA (11:55)
--- NOTE | 2024-01-25 13:58 | CT Report ---
PROCEDURE: CT and pelvis with contrast INDICATIONS: lower abd pain for weeks TECHNIQUE: Helical axial CT of the abdomen and pelvis was obtained after intravenous contrast adminis tration and reformatted in multiple planes. Radiation dose reduction was achieved using automated exp osure control or adjustment of mA and/or kV according to patient size. COMPARISON: 10/19/2020 FINDINGS: Lower thorax: The lung bases are clear. Heart size normal. No hiatal hernia. Liver: Hepatic fatty infiltration. Hypodense nodule in the periphery the right hepatic lobe measures 1.1 cm, similar prior. Biliary system: Laminated stone in the lumen of the gallbladder without evidence of acute cholecysti tis Pancreas: Unremarkable without mass or inflammation evident. Spleen: Normal in size and density. Adrenals: Normal morphology and density. Reproductive system: Unremarkable as visualized. Urinary system: Exophytic solid right renal mass lesion again noted, enlarged from prior now measuri ng 3.4 x 3.7 cm, previously 2.8 x 2.6 cm. Renal vein appears patent. Urinary bladder unremarkable. Gastrointestinal system: Multiple diverticuli arise from the entire colon, particularly the second p roximal sigmoid colon. No definitive evidence of active diverticulitis Appendix: No findings to suggest acute appendicitis. Peritoneal spaces: No mesenteric or retroperitoneal adenopathy. No free air. No free fluid. Vasculature: Infrarenal IVC filter in place Abdominal wall: Abdominal wall is intact without evidence of ventral or inguinal hernias. Musculoskeletal: Degenerative disc disease and arthropathy noted in the lower lumbar spine IMPRESSION: Colonic diverticulosis without definitive evidence of acute diverticulitis. Solid enlarging exophytic right renal mass lesion, suspicious for renal cell carcinoma. Stable right hepatic hypodensity. Otherwise, no evidence of metastatic disease. Cholelithiasis without CT evidence of acute cholecystitis Reviewed by: Maikel Burns MD on 01/25/2024 12:56 PM [place] Approved by: Maikel Burns MD on 01/25/2024 12:56 PM [place] Station ID: [id number]
[2024-01-25] MEDS: ACETAMINOPHEN 325 MG TABLET PO STA (14:41)
[2024-01-25] MEDS: DOCUSATE SODIUM 100 MG CAPSULE PO STA (14:41)
[2024-01-25] MEDS: iohexoL-300 100 ML VIAL IVP ONE (14:49)
[2024-01-25 15:13] VITALS: BP 147/94; O2SAT 99
== END 2024-01-25 15:09 | disposition home or self-care (01) ==
LOC: ED 09:53
DX: N28.1 Cyst of kidney, acquired (principal); R10.33 Periumbilical pain; R30.9 Painful micturition, unspecified; R11.0 Nausea; I10 Essential (primary) hypertension; I48.91 Unspecified atrial fibrillation
CPT/HCPCS: 36415; 74177; 80053; 81003; 83690; 84153; 84154; 85025; 85651; 86140; 96374; 99284; A9270; Q9967; 81001; 87086

== ENCOUNTER 2024-02-18 14:52 | Inpatient (IN) | payer OTHER ==
[2024-02-18] MEDS: SODIUM CHLORIDE 0.9% 1,000 ML IV ONE (15:48)
[2024-02-18 15:57] LABS: BASOPHILS % (AUTO) 0.2 %; EOSINOPHILS % (AUTO) 0.2 %; HCT - HEMATOCRIT 44.9 % (42.0-52.0); HGB - HEMOGLOBIN 14.7 g/dL (14.0-18.0); LYMPHOCYTES # (AUTO) 0.3 10^3/uL (1.5-3.5); MEAN CORPUSCULAR HEMOGLOBIN 29.3 pg (27.0-31.0); MEAN CORPUSCULAR HGB CONC 32.7 g/dL (32.0-36.0); MEAN CORPUSCULAR VOLUME 89.6 fL (80.0-94.0); MONOCYTES # (AUTO) 0.4 10^3/uL (0.0-1.0); MONOCYTES % (AUTO) 5.2 %; NEUTROPHILS # (AUTO) 7.5 10^3/uL (1.5-6.6); PLT - PLATELET COUNT 195 10^3/uL (130-450); RED BLOOD COUNT 5.01 10^6/uL (4.70-6.10); RED CELL DISTRIBUTION WIDTH 13.2 % (12.0-15.0); WHITE BLOOD COUNT 8.2 x10^3/uL (4.8-10.8)
[2024-02-18 16:04] LABS: ALBUMIN 3.9 g/dL (3.2-5.5); ALBUMIN/GLOBULIN RATIO 1.4 (1.0-2.2); BILIRUBIN,TOTAL 1.1 mg/dL (0.2-1.0); CALCIUM 8.7 mg/dL (8.5-10.3); CREATININE 1.5 mg/dL (0.6-1.3); MAGNESIUM 1.7 mg/dL (1.7-2.3); POTASSIUM 5.2 mmol/L (3.5-4.5); TOTAL PROTEIN 6.7 g/dL (6.4-8.9)
[2024-02-18] MEDS: ACETAMINOPHEN 325 MG TABLET PO STA (16:41)
[2024-02-18] MEDS ORDERED: iohexoL-300 100 ML VIAL ONE (16:45)
[2024-02-18] MEDS: cefTRIAXone 2 GM in SODIUM CHLORIDE 0.9% MINIBAG 100 ML IV STA (16:46)
[2024-02-18] MEDS: VANCOMYCIN INJ 1.25 GM in SODIUM CHLORIDE 0.9% 250 ML IV STA (17:13)
[2024-02-18 17:23] LABS: BILIRUBIN,URINE NEGATIVE (NEGATIVE); GLUCOSE, URINE (UA) NEGATIVE (NEGATIVE); KETONES,URINE (UA) NEGATIVE (NEGATIVE); LEUKOCYTE ESTERASE, URINE NEGATIVE (NEGATIVE); NITRITE,URINE NEGATIVE (NEGATIVE); OCCULT BLOOD,URINE NEGATIVE (NEGATIVE); PH,URINE 6.5 PH (5.0-7.5); PROTEIN,URINE NEGATIVE (NEGATIVE); UROBILINOGEN,URINE 0.2 (NORMAL) E.U./dL (NORMAL)
[2024-02-18 17:25] LABS: CLARITY,URINE CLEAR (CLEAR)
--- NOTE | 2024-02-18 18:35 | CT Report ---
PROCEDURE: Head WO INDICATIONS: dizziness TECHNIQUE: Noncontrast 4.5 mm thick angled axial sections acquired from the foramen magnum to the vertex. For r adiation dose reduction, the following was used: automated exposure control, adjustment of mA and/or kV according to patient size. COMPARISON: Correlation is made with the accompanying imaging. FINDINGS: Image quality: Excellent. CSF spaces: Basal cisterns are patent. No extra-axial fluid collections. Ventricles are normal in size and shape. Brain: No midline shift. No intracranial masses or hemorrhage. [place]-white matter interface is norm al. Skull and face: Calvarium and visualized facial bones are intact, without suspicious lesions. Sinuses: Moderate mucosal thickening can be seen within the ethmoid air cells, with milder mucosal t hickening elsewhere within the paranasal sinuses. There is a mucous retention cyst seen involving the left maxillary sinus. No significant abnormal fluid can be seen within the mastoid air cells. IMPRESSION: No acute intracranial pathology. Paranasal sinus disease noted. Reviewed by: Dakota Briseno MD on 02/18/2024 5:34 PM MIGUEL Approved by: Dakota Briseno MD on 02/18/2024 5:34 PM MIGUEL Station ID: [id number]
--- NOTE | 2024-02-18 18:38 | CT Report ---
PROCEDURE: Angio Head/Neck INDICATIONS: ACTUE NEW WORSENING NECK PAIN WITH DIZZINESS TECHNIQUE: After the administration of intravenous contrast, 1 mm thick sections acquired from the aortic arch t hrough the [employer] [place] [employer] [place]. 3-dimensional zskgkxj-jehvgnfif-slzeixlboa (MIP) and/or volume renderin g reformats were acquired of the central intracranial vasculature and neck separately. For radiation dose reduction, the following was used: automated exposure control, adjustment of mA and/or kV acco rding to patient size. CONTRAST: Omni 300 100ml COMPARISON: Correlation is made with the accompanying imaging. FINDINGS: Image quality: Diagnostic. HEAD CT: CSF Spaces: Basal cisterns are patent. No extra-axial fluid collections. Ventricles are normal in size and shape. Brain: No significant abnormality is seen for scanning technique. Skull and face: Calvarium and visualized facial bones appear intact, without suspicious lesions. Sinuses: Visualized sinuses and mastoids are clear. HEAD CT ANGIOGRAPHY: Anterior circulation: The internal carotid arteries demonstrate normal size and intraluminal flow si gnal. Note is made of a hypoplastic right A1 segment, with a correspondingly robust left A1 segment. This i s considered to be a developmental variant of no clinical consequence. The flow within the paired an terior cerebral arteries is otherwise normal and symmetric. The flow within the middle cerebral nadeem drew is normal and symmetric. The anterior communicating artery is seen. No stenoses, occlusions, o r aneurysms. Posterior circulation: Visualized portions of the vertebral arteries demonstrate normal caliber, and join to form a normal appearing basilar artery. Flow within the posterior cerebral arteries is norm al and symmetric. No aneurysms are seen. NECK CT ANGIOGRAPHY: Carotid system: The great vessels demonstrate a conventional anatomy as they arise from the aortic a rch. The origins of the common carotid arteries appear patent. The common carotid arteries demonstr ate normal caliber and courses. The bifurcation regions are both widely patent. The internal caroti d arteries demonstrate normal calibers and courses. Posterior circulation: The origins of the vertebral arteries both appear widely patent. The more riley perior extracranial portions of both vertebral arteries also demonstrate normal courses and calibers. They join to form a normal appearing basilar artery. Soft tissues: Visualized neck soft tissues demonstrate no suspicious abnormalities. Bones: No suspicious bony lesions. Visualized cervical spine appears normally aligned. At least mo derate cervical spine degenerative change can be seen, with multiple levels of significant facet hype rtrophy. IMPRESSION: No significant intracranial arterial abnormality is seen. No significant abnormality is seen within the arteries of the neck. Additional findings: [employer] [place] [employer] [place] developmental anomalies At least moderate cervical spine degenerative change The estimate of stenosis included in the report of the imaging study was calculated using the NASCET method Reviewed by: Dakota Briseno MD on 02/18/2024 5:37 PM MIGUEL Approved by: Dakota Briseno MD on 02/18/2024 5:37 PM AKBENITO Station ID: [id number]
--- NOTE | 2024-02-18 18:51 | CT Report ---
PROCEDURE: Abdomen/Pelvis W INDICATIONS: hypotension, abd pain CONTRAST: Omni 300 100ml TECHNIQUE: After the administration of intravenous contrast, a CT scan of the abdomen and pelvis was performed. Images were recorded and evaluated at appropriate window settings. Reformats: coronal and sagittal. F or radiation dose reduction, the following was used: automated exposure control, adjustment of mA and /or kV according to patient size. COMPARISON: CT abdomen with pelvis 01/25/2024. FINDINGS: Image quality: Diagnostic. Lower chest: Unremarkable. Liver: Stable right hepatic lobe 1.1 cm hypodensity and additional too small to characterize subcenti meter hepatic hypodensities. Gallbladder and biliary tree: Cholelithiasis without wall thickening. No biliary dilation. Spleen: No splenomegaly. Pancreas: No pancreatic ductal dilation. Adrenals: No adrenal nodule. Kidneys and ureters: No hydronephrosis. No renal cystic lesion which requires follow up. Redemonstrat ion of 3.7 cm exophytic right mass.. Stomach, bowel and peritoneum: No bowel distension. No pathologic free fluid. Diverticulosis without acute inflammation. Demonstration of surgical clips in the left lower quadrant. Lymph nodes: No central or retroperitoneal adenopathy. Vessels: No infrarenal aortic aneurysm. Infrarenal IVC filter in place. PELVIS Reproductive organs: Prostate is enlarged Bladder: No abnormal wall thickening, accounting for underdistention. Pelvic lymph nodes: No pelvic adenopathy by size criteria. Bones: Vertebral body compression fracture. Degenerative changes of the visualized spine. Other: No significant ventral or inguinal hernia. IMPRESSION: Diverticulosis without CT evidence of acute diverticulitis. Cholelithiasis. No evidence of acute cholecystitis. Redemonstration of right inferior pole exophytic mass, suspicious for renal cell carcinoma. Recommend urology consultation. Reviewed by: Noemi Archer MD, PhD on 02/18/2024 6:50 PM PDT Approved by: Noemi Archer MD, PhD on 02/18/2024 6:50 PM PDT Station ID: [id number]
--- NOTE | 2024-02-18 21:16 | ED Physician Documentation ---
History of Present Illness - Stated complaint Stated Complaint: N/D,VIRTIGO,HEAD NUMBNESS - Chief complaint Chief Complaint: Abd Pain - Additonal information Additional information: 63-year-old male with history of CHF, hypertension, hypercholesterolemia, atrial fibrillation, GERD presents emergency department for dizziness, generalized weakness, diarrhea, headache, lightheadedness, neck pain. Patient says that he was recently on antibiotics for urinary tract infection and he is not entirely sure but he thinks he is on possibly doxycycline and Keflex he does endorse and lower abdominal pain. He was quite hypertensive upon initial arrival to the emergency department his maps was around 68. He has had no recent falls no injuries. no open wounds. He says has been having fevers and chills at home but unsure how high his fevers have been. no recent international travel PD PAST MEDICAL HISTORY - Past Medical History Cardiovascular: Congestive heart failure, Hypertension, High cholesterol, Atrial fibrillation Respiratory: Sleep apnea Endocrine/Autoimmune: None GI: GERD : None HEENT: None Psych: Depression Musculoskeletal: None Derm: None - Past Surgical History Ortho: Knee replacement, Other - Present Medications Home Medications: Ambulatory Orders Medication Instructions Recorded Confirmed Melatonin 12 mg PO DAILY PM 04/19/21 06/01/21 Metoprolol Tartrate [Lopressor] 100 mg PO BID 04/19/21 06/01/21 Omeprazole Magnesium 20 mg PO DAILY 04/19/21 06/01/21 Rivaroxaban [Xarelto] 20 mg PO DAILY 04/19/21 06/01/21 dilTIAZem HCL [Tiazac] 180 mg PO BID 04/19/21 06/01/21 traZODone [Desyrel] 200 mg PO HS 04/19/21 06/01/21 Docusate Sodium 100Mg Capsule 100 mg PO DAILY #20 cap 01/25/24 [Colace 100Mg Capsule] Doxycycline Hyclate 100 mg PO BID 7 Days #14 cap 01/25/24 Meloxicam [Mobic] 7.5 mg PO BID 10 Days #20 tablet 01/25/24 - Allergies Allergies/Adverse Reactions: Allergies Allergy/AdvReac Type Severity Reaction Status Date / Time No Known Drug Allergies Allergy Verified 02/18/24 15:36 - Social History Does the pt smoke?: No Smoking Status: Never smoker Does the pt drink ETOH?: No Does the pt have substance abuse?: No PD ED PE NORMAL - Vitals Vital signs reviewed: Yes - General General: Alert and oriented X 3, Well developed/nourished, Other (Ill-appearing) - HEENT HEENT: Atraumatic, PERRL, EOMI - Neck Neck: No bony TTP, Other (Positive Brudzinski sign) - Cardiac Cardiac: RRR - Respiratory Respiratory: No respiratory distress, Clear bilaterally - Abdomen Abdomen: Normal bowel sounds, Other (Mild suprapubic tenderness with palpation no guarding) - Back Back: No CVA TTP - Derm Derm: Normal color, Warm and dry, No rash - Extremities Extremities: No deformity - Neuro Neuro: Alert and oriented X 3, behavioral technician 2-12 intact, No motor deficit, No sensory deficit, Normal speech Eye Opening: Spontaneous Motor: Obeys Commands Verbal: Oriented GCS Score: 15 - Psych Psych: Normal mood, Normal affect Results - Vitals Vitals: Vital Signs - 24 hr 02/18/24 02/18/24 02/18/24 15:18 15:54 17:28 Temperature 36.0 C L 37.7 C 37.0 C Heart Rate 69 76 84 Respiratory 17 14 14 Rate Blood Pressure 99/76 106/71 112/80 O2 Saturation 100 99 100 02/18/24 02/18/24 19:00 21:00 Temperature Heart Rate 86 102 H Respiratory 18 17 Rate Blood Pressure 102/62 124/97 H O2 Saturation 100 100 Oxygen O2 Source Room air - Labs Labs: Laboratory Tests 02/18/24 02/18/24 02/18/24 15:41 15:41 15:41 WBC 8.2 RBC 5.01 Hgb 14.7 Hct 44.9 MCV 89.6 MCH 29.3 MCHC 32.7 RDW 13.2 Plt Count 195 MPV 9.0 Neut # (Auto) 7.5 H Lymph # (Auto) 0.3 L Hart # (Auto) 0.4 Eos # (Auto) 0.0 Baso # (Auto) 0.0 Absolute Nucleated RBC 0.00 Nucleated RBC % 0.0 Sodium 131 L Potassium 5.2 H Chloride 102 Carbon Dioxide 21 Anion Gap 8.0 BUN 23 H Creatinine 1.5 H Estimated GFR (MDRD) 47 L Glucose 134 H Lactic Acid 2.4 H Calcium 8.7 Magnesium 1.7 Total Bilirubin 1.1 H AST 16 ALT 14 Alkaline Phosphatase 31 L Total Protein 6.7 Albumin 3.9 Globulin 2.8 Albumin/Globulin Ratio 1.4 Lipase 22 Urine Color Urine Clarity Urine pH Ur Specific Henrietta Urine Protein Urine Glucose (UA) Urine Ketones Urine Occult Blood Urine Nitrite Urine Bilirubin Urine Urobilinogen Ur Leukocyte Esterase Ur Microscopic Review Urine Culture Comments Nasal Adenovirus (PCR) Nasal B. parapertussis DNA (PCR) Nasal Coronavir 229E PCR Nasal Coronavir HKU1 PCR Nasal Coronavir NL63 PCR Nasal Coronavir OC43 PCR Nasal Enterovir/Rhinovir PCR Nasal Influenza B PCR Nasal Influenza A PCR Nasal Parainfluen 1 PCR Nasal Parainfluen 2 PCR Nasal Parainfluen 3 PCR Nasal Parainfluen 4 PCR Nasal RSV (PCR) Nasal B.pertussis DNA PCR Nasal C.pneumoniae (PCR) Noe Human Metapneumo PCR Nasal M.pneumoniae (PCR) Nasal SARS-CoV-2 (PCR) 02/18/24 02/18/24 17:15 20:38 WBC RBC Hgb Hct MCV MCH MCHC RDW Plt Count MPV Neut # (Auto) Lymph # (Auto) Hart # (Auto) Eos # (Auto) Baso # (Auto) Absolute Nucleated RBC Nucleated RBC % Sodium Potassium Chloride Carbon Dioxide Anion Gap BUN Creatinine Estimated GFR (MDRD) Glucose Lactic Acid Calcium Magnesium Total Bilirubin AST ALT Alkaline Phosphatase Total Protein Albumin Globulin Albumin/Globulin Ratio Lipase Urine Color DARK YELLOW Urine Clarity CLEAR Urine pH 6.5 Ur Specific Henrietta 1.010 Urine Protein NEGATIVE Urine Glucose (UA) NEGATIVE Urine Ketones NEGATIVE Urine Occult Blood NEGATIVE Urine Nitrite NEGATIVE Urine Bilirubin NEGATIVE Urine Urobilinogen 0.2 (NORMAL) Ur Leukocyte Esterase NEGATIVE Ur Microscopic Review NOT INDICATED Urine Culture Comments NOT INDICATED Nasal Adenovirus (PCR) NOT DETECTED Nasal B. parapertussis DNA (PCR) NOT DETECTED Nasal Coronavir 229E PCR NOT DETECTED Nasal Coronavir HKU1 PCR NOT DETECTED Nasal Coronavir NL63 PCR NOT DETECTED Nasal Coronavir OC43 PCR NOT DETECTED Nasal Enterovir/Rhinovir PCR NOT DETECTED Nasal Influenza B PCR NOT DETECTED Nasal Influenza A PCR NOT DETECTED Nasal Parainfluen 1 PCR NOT DETECTED Nasal Parainfluen 2 PCR NOT DETECTED Nasal Parainfluen 3 PCR NOT DETECTED Nasal Parainfluen 4 PCR NOT DETECTED Nasal RSV (PCR) NOT DETECTED Nasal B.pertussis DNA PCR NOT DETECTED Nasal C.pneumoniae (PCR) NOT DETECTED Noe Human Metapneumo PCR NOT DETECTED Nasal M.pneumoniae (PCR) NOT DETECTED Nasal SARS-CoV-2 (PCR) NOT DETECTED - Rads (name of study) CT angio head and neck Relevant Findings:: Final report received, EMP independent interpretation of test, Other (No acute intracranial arterial or cervical abnormalities or findings.) CT head without con Relevant Findings:: Final report received, EMP independent interpretation of test, Other (No intracranial hemorrhages or other abnormal findings.) CT chest without Relevant Findings:: Final report received, EMP independent interpretation of test, Other (No acute cardiopulmonary abnormalities or findings) CT abdomen pelvis with Relevant Findings:: Final report received, EMP independent interpretation of test, Other (Diverticulosis without diverticulitis, cholelithiasis without cholecystitis, right inferior pole exophytic mass suspicious for possible renal cell carcinoma) PD Medical Decision Making - ED course ED course: This is a 63-year-old gentleman who presents emergency department with dizziness, generalized malaise, neck pain head pain. Patient did meet sepsis criteria with his elevated lactate, elevated white blood cell count, original hypotension with a MAP of 68. He was started on IV fluids and given a liter of normal saline and started on broad-spectrum IV antibiotics, vancomycin, Rocephin. 2 sets of blood cultures were completed prior to administration of IV antibiotics. My original concern was sepsis due to urinary tract infection possible pyelonephritis as patient did have some suprapubic tenderness and was recently on antibiotics for urinary tract infection. His urinalysis came back unremarkable no leukocytes no nitrites. Labs are collected he does not have any anemia that could be contributing to patient's hypotension his neutrophils were mildly elevated at 7.5. CMP also complete which does reveal mild hyponatremia, 131 and hyperkalemia 5.2 with a little bit of an REUBEN, creatinine 1.5, BUN 23, GFR 47. Patient was seen here in early 01/25/2024 and his GFR was found to be 75 at that time. Patient's lactic acid was also found to be elevated at 2.4. I spoke with telemetry hospitalist originally about patient he agrees that he does need to be admitted but he would like to have a chest CT complete for further evaluation of possible pneumonia as we are unable at this point in time to find any source of infection. Head CT without contrast was complete for any sort of intracranial abnormalities or hemorrhages given patient's dizziness and this was found to be overall unremarkable for any acute findings and angio head and neck was also complete because patient was complaining of severe neck pain and head pain and there is also no significant intracranial arterial abnormalities of the head or neck. CT abdomen pelvis with contrast was also complete as patient was having mild suprapubic tenderness it revealed diverticulosis without diverticulitis as well as cholelithiasis without cholecystitis with ongoing concerns for right inferior pole exophytic mass suspicious for possible renal cell carcinoma. Patient was informed of these findings he said that he does believe that he was told in the past about possible mass in his right kidney and has not been able to have any follow-up with these findings. CT chest without con was complete for further evaluation of possible pneumonia and again we are not seeing any acute cardiopulmonary abnormalities or findings. The only thing we have been unable to rule out is meningitis, given his nuchal rigidity I was going to do a lumbar puncture but I do want to go do this patient did inform me that he was anticoagulated for his A-fib on Xarelto and that he did take his dose today and yesterday. Given the guidelines of up-to-date this is contraindicated to do a lumbar puncture while being anticoagulated and t up-to-date recommends not completing lumbar puncture until 24 to 48 hours off of all anticoagulants. This was all informed telehospitalist who agrees that patient needs to be admitted and that meningitis will remain high on the differential as we are unable to find any source of infection at this time. Patient would benefit from nephrology consult as well as ongoing hospitalization for further workup and evaluation of his hypertension, neck pain, dizziness. Patient was informed that he will will be admitted to the hospital and agrees with the plan and all questions answered. Departure - Departure Disposition: [facility] DC/Xfer Forms: PCP List
[2024-02-18] MEDS: iohexoL-300 100 ML VIAL IVP ONE (21:23)
[2024-02-18 21:38] LABS: B. PARAPERTUSSIS- RESP PCR PAN NOT DETECTED; B. PERTUSSIS- RESP PCR PANEL NOT DETECTED; C. PNEUMONIAE- RESP PCR PANEL NOT DETECTED; CORONAVIRUS 229E-RESP PCR NOT DETECTED; CORONAVIRUS HKU1-RESP PCR NOT DETECTED; CORONAVIRUS NL63-RESP PCR NOT DETECTED; CORONAVIRUS OC43-RESP PCR NOT DETECTED; HUMAN METAPNEUMOVIRUS NOT DETECTED; INFLUENZA A- RESP PCR PANEL NOT DETECTED; INFLUENZA B - RESP PCR PANEL NOT DETECTED; M. PNEUMONIAE- RESP PCR PANEL NOT DETECTED; PARAINFLUENZA VIRUS 1 NOT DETECTED; PARAINFLUENZA VIRUS 2 NOT DETECTED; PARAINFLUENZA VIRUS 3 NOT DETECTED; PARAINFLUENZA VIRUS 4 NOT DETECTED; RHINOVIRUS/ENTEROVIRUS NOT DETECTED; RSV- RESP PCR PANEL NOT DETECTED; SARS-CoV-2 -RESP PCR PANEL NOT DETECTED
[2024-02-18] MEDS: HYDROmorphone 0.5 MG/0.5 ML SYRINGE IVP STA (22:11)
--- NOTE | 2024-02-18 22:34 | CT Report ---
PROCEDURE: Chest WO INDICATIONS: sepsis TECHNIQUE: A CT scan of the chest was performed. Intravenous contrast media was not administered. Images were re corded and evaluated at appropriate window settings. Reformats: axial MIP of the chest, coronal and s agittal. For radiation dose reduction, the following was used: automated exposure control, adjustment of mA and/or kV according to patient size. COMPARISON: 02/18/2024, 01/25/2024. FINDINGS: Image quality: Diagnostic. Chest wall and lower neck: The thyroid is heterogeneous and mildly enlarged. No axillary or supraclav icular adenopathy by size. Lungs and pleura: No consolidation. No pleural effusions. No pneumothorax. No suspicious pulmonary n odules which require follow up. Calcified granuloma. Mediastinum: Heart size is enlarged. No pericardial effusion. No large vessel abnormality. No mediast inal adenopathy by size criteria. Bones: No aggressive osseous abnormality. Upper Abdomen: Gallbladder distention with cholelithiasis. IMPRESSION: The gallbladder is distended, with a stone present. Early acute cholecystitis is a consideration. Cor relate with Zafar's sign and consider right upper quadrant ultrasound. Mildly enlarged and heterogeneous thyroid, suggestive of thyroiditis. No acute cardiopulmonary process. Reviewed by: Vinh Flowers MD on 02/18/2024 10:33 PM PDT Approved by: Vinh Flowers MD on 02/18/2024 10:33 PM PDT Station ID: [id number]
[2024-02-18] MEDS ORDERED: SODIUM CHLORIDE FLUSH 0.9% 10 ML SYRINGE IVP PRN (23:17)
[2024-02-18] MEDS ORDERED: ONDANSETRON 4 MG/2 ML VIAL IVP PRN (23:17)
[2024-02-18 23:42] LABS: BASOPHILS % (AUTO) 0.2 %; EOSINOPHILS # (AUTO) 0.1 10^3/uL (0.0-0.7); EOSINOPHILS % (AUTO) 1.8 %; HCT - HEMATOCRIT 41.1 % (42.0-52.0); HGB - HEMOGLOBIN 13.8 g/dL (14.0-18.0); LYMPHOCYTES # (AUTO) 0.5 10^3/uL (1.5-3.5); LYMPHOCYTES % (AUTO) 8.6 %; MEAN CORPUSCULAR HEMOGLOBIN 30.3 pg (27.0-31.0); MEAN CORPUSCULAR HGB CONC 33.6 g/dL (32.0-36.0); MEAN CORPUSCULAR VOLUME 90.1 fL (80.0-94.0); MEAN PLATELET VOLUME 8.8 fL (7.4-11.4); MONOCYTES # (AUTO) 0.5 10^3/uL (0.0-1.0); MONOCYTES % (AUTO) 9.3 %; NEUTROPHILS # (AUTO) 4.4 10^3/uL (1.5-6.6); NEUTROPHILS % (AUTO) 79.7 %; PLT - PLATELET COUNT 152 10^3/uL (130-450); RED BLOOD COUNT 4.56 10^6/uL (4.70-6.10); RED CELL DISTRIBUTION WIDTH 13.2 % (12.0-15.0); WHITE BLOOD COUNT 5.6 x10^3/uL (4.8-10.8)
[2024-02-18 23:54] LABS: MAGNESIUM 1.7 mg/dL (1.7-2.3)
[2024-02-18 23:59] LABS: CHOL/HDL RATIO 2.3 (<5.0); CHOLESTEROL 97 mg/dL; HDL CHOLESTEROL 43 mg/dL; LDL CHOLESTEROL,CALCULATED 41 mg/dL; TRIGLYCERIDES 64 mg/dL (48-352); VLDL CHOLESTEROL 13 mg/dL
[2024-02-19] LABS: ALBUMIN 3.6 g/dL (3.2-5.5); ALBUMIN/GLOBULIN RATIO 1.4 (1.0-2.2); BILIRUBIN,TOTAL 0.8 mg/dL (0.2-1.0); CREATININE 1.2 mg/dL (0.6-1.3); POTASSIUM 4.4 mmol/L (3.5-4.5); TOTAL PROTEIN 6.1 g/dL (6.4-8.9)
[2024-02-19 00:10] LABS: THYROID STIMULATING HORMONE 0.76 uIU/mL (0.34-5.60)
[2024-02-19] MEDS: MORPHINE 2 MG/ML CARPUJECT IVP PRN (00:20)
[2024-02-19] MEDS: LACTATED RINGERS 1,000 ML IV SCH (00:20)
[2024-02-19] MEDS: SODIUM CHLORIDE FLUSH 0.9% 10 ML SYRINGE IVP SCH (00:20)
--- NOTE | 2024-02-19 00:50 | HISTORY & PHYSICAL EXAMINATION ---
Chief Complaint - Chief Complaint Chief Complaint: neck pain, COLE, dizziness History of Present Illness - History of Present Illness HPI Comment/Other: pt with generalized weakness, dizziness, and malaise. states he has been treated for a UTI recently. states he has not been feeling well for about 6 weeks. no falls reported. no seizures. he has had fevers and chills. no diarrhea. feels unsteady when walking. h/o bph. no chest pain or sob. denies recent travels. no hematuria. decreased po intake but denies any notable weight loss. History - Past Medical History Cardiovascular: reports: Congestive heart failure, Hypertension, High cholesterol, Atrial fibrillation Respiratory: reports: Sleep apnea Endocrine/Autoimmune: reports: None GI: reports: GERD : reports: None HEENT: reports: None Psych: reports: Depression Musculoskeletal: reports: None Derm: reports: None MRSA Hx?: Yes - Past Surgical History Ortho: reports: Knee replacement, Other Meds/Allgy - Home Medications Home Medications: Ambulatory Orders Medication Instructions Recorded Confirmed Melatonin 12 mg PO DAILY PM 04/19/21 06/01/21 Metoprolol Tartrate [Lopressor] 100 mg PO BID 04/19/21 06/01/21 Omeprazole Magnesium 20 mg PO DAILY 04/19/21 06/01/21 Rivaroxaban [Xarelto] 20 mg PO DAILY 04/19/21 06/01/21 dilTIAZem HCL [Tiazac] 180 mg PO BID 04/19/21 06/01/21 traZODone [Desyrel] 200 mg PO HS 04/19/21 06/01/21 Docusate Sodium 100Mg Capsule 100 mg PO DAILY #20 cap 01/25/24 [Colace 100Mg Capsule] Doxycycline Hyclate 100 mg PO BID 7 Days #14 cap 01/25/24 Meloxicam [Mobic] 7.5 mg PO BID 10 Days #20 tablet 01/25/24 - Allergies Allergies/Adverse Reactions: Allergies Allergy/AdvReac Type Severity Reaction Status Date / Time No Known Drug Allergies Allergy Verified 02/18/24 15:36 Review of Systems - Other Findings Other Findings: 14 pt review done with positives per hpi; all others reviewed as negative Exam - Vital Signs Vital Signs: Vital Signs x48h Temp Pulse Resp BP Pulse Ox 02/18/24 23:00 94 20 132/92 H 96 02/18/24 21:00 102 H 17 124/97 H 100 02/18/24 19:00 86 18 102/62 100 02/18/24 17:28 37.0 C 84 14 112/80 100 - Physical Exam Comments/Other: gen - aaox3, tired, cooperative with questions heent - eomi, nc/at heart - per ed charting lungs - per ed charting abd - per ed charting msk - no acute trauma noted or reported Conclusion/Plan - Lab Results Fish Bones: 02/18/24 23:29 02/18/24 23:29 - Other Other Results/Comments: pt with - - sepsis d/t unclear source continue broad-spectrum vanc + zosyn for now recently treated for UTI, and still has some dysuria lactic acidosis, hypotension pt may need lumbar puncture, but deferred for now by ED d/t current anticoagulation - cholelithiasis noted on CT imaging check RUQ sono to assess for cholecystitis - whitney in setting of above and with h/o bph continue IVF check renal sono renally dose meds, avoid nephrotoxins as much as possible check CK levels - renal mass concern for renal cell CA needs urology consultation may be contributing to pt's overall debility - hypotension d/t above improving with ivf, and will continue at this time hold bp meds for now - dizziness likely d/t above head imaging NEG for acute pathology also with COLE and neck pain --> may need lumbar puncture, and anticoagulation has been held at this time no focal neuro deficits at this time and no obvious meningeal signs noted or reported - generalized malaise d/t above pt eval and treat, fall precautions f/u labs, cultures, replete electrolytes further orders per clinical course
[2024-02-19] MEDS: oxyCODONE 5 MG TABLET PO PRN (01:15)
[2024-02-19 05:12] LABS: BASOPHILS % (AUTO) 0.4 %; EOSINOPHILS # (AUTO) 0.1 10^3/uL (0.0-0.7); EOSINOPHILS % (AUTO) 2.6 %; HCT - HEMATOCRIT 39.3 % (42.0-52.0); HGB - HEMOGLOBIN 13.1 g/dL (14.0-18.0); LYMPHOCYTES # (AUTO) 0.7 10^3/uL (1.5-3.5); LYMPHOCYTES % (AUTO) 12.9 %; MEAN CORPUSCULAR HEMOGLOBIN 29.8 pg (27.0-31.0); MEAN CORPUSCULAR HGB CONC 33.3 g/dL (32.0-36.0); MEAN CORPUSCULAR VOLUME 89.3 fL (80.0-94.0); MEAN PLATELET VOLUME 8.8 fL (7.4-11.4); MONOCYTES # (AUTO) 0.4 10^3/uL (0.0-1.0); MONOCYTES % (AUTO) 8.5 %; NEUTROPHILS # (AUTO) 3.8 10^3/uL (1.5-6.6); NEUTROPHILS % (AUTO) 75.4 %; PLT - PLATELET COUNT 137 10^3/uL (130-450); RED CELL DISTRIBUTION WIDTH 13.2 % (12.0-15.0)
[2024-02-19 05:31] LABS: ALBUMIN 3.4 g/dL (3.2-5.5); ALBUMIN/GLOBULIN RATIO 1.4 (1.0-2.2); BILIRUBIN,TOTAL 0.7 mg/dL (0.2-1.0); CALCIUM 8.1 mg/dL (8.5-10.3); CREATININE 0.9 mg/dL (0.6-1.3); MAGNESIUM 1.7 mg/dL (1.7-2.3); POTASSIUM 3.8 mmol/L (3.5-4.5); TOTAL PROTEIN 5.8 g/dL (6.4-8.9)
[2024-02-19] MEDS: ASCORBIC ACID 500 MG TABLET PO SCH (08:50)
[2024-02-19] MEDS: diltiaZEM CD 180 MG CAPSULE PO SCH (08:50)
[2024-02-19] MEDS: DOCUSATE SODIUM 100 MG CAPSULE PO SCH (08:50)
[2024-02-19] MEDS: LACTOBACILLUS RHAMNOSUS GG CAPSULE PO SCH (08:50)
[2024-02-19] MEDS: MULTIVITAMIN W/MINERALS TABLET PO SCH (08:50)
[2024-02-19] MEDS: TAMSULOSIN 0.4 MG CAPSULE PO SCH (08:51)
[2024-02-19] MEDS: PANTOPRAZOLE 40 MG TABLET PO SCH (08:51)
--- NOTE | 2024-02-19 09:06 | Ultrasound Report ---
PROCEDURE: Abdomen Limited INDICATIONS: cholecystitis TECHNIQUE: Real-time focused scanning was performed of the abdomen, with image documentation. COMPARISONS: CT abdomen and pelvis dated 02/18/2024. FINDINGS: Liver: Liver is normal in size and homogeneous in echotexture. Gallbladder: Distended gallbladder with a large mobile stone measuring 2.2 cm. No wall thickening. Ga llbladder wall measures 2.2 mm. No sonographic Zafar's sign identified. Biliary ducts: Intrahepatic bile ducts are non-dilated. Extrahepatic bile duct caliber measuresmm 8 .0 mm at the common bile duct but tapers to 3.7 mm at the common hepatic duct. Normal is 6-7 mm or l ess in diameter, or 10 mm or less post-cholecystectomy. Pancreas: Not well visualized due to overlying bowel gas. Right kidney: Normal in size and echotexture. Right kidney measures 12.5 cm long. No hydronephrosis or nephrolithiasis. No solid masses. No complex renal cystic lesions which require follow-up. The ex ophytic hyperdense lesion seen on the CT RIGHT kidney is a cyst by ultrasound. It measures 3.3 cm in maximum diameter. IVC: Intrahepatic inferior vena cava is patent. Miscellaneous: No free abdominal fluid. IMPRESSION: 1. Distended gallbladder with large mobile stone. No Zafar sign identified. Recommend correlation fo r presence or absence of symptoms suggesting acute cholecystitis. 2. The masslike lesion off the right kidney seen on CT isn't a simple cyst by ultrasound. Reviewed by: Wolf Nava MD on 02/19/2024 9:05 AM PDT Approved by: Wolf Nava MD on 02/19/2024 9:05 AM PDT Station ID: [id number]
[2024-02-19 10:41] LABS: ESTIMATED AVERAGE GLUCOSE 114 mg/dL (70-100); HEMOGLOBIN A1c% 5.6 % (4.27-6.07)
[2024-02-19] MEDS: ACETAMINOPHEN 325 MG TABLET PO PRN (12:08)
--- NOTE | 2024-02-19 15:27 | PHARMACY PROGRESS NOTE ---
- Best Possible Medication History Admit Date and Time: 02/18/24 7632 Processed by: Pharmacy Medications reviewed in ED?: No Medication History completed: Yes Patient Interview: Completed Secondary Source(s): Insurance records As the person ultimately responsible for medication therapy, providers are able to order a medication from an existing home medication list in [facility] via the "Reconcile Routine" prior to Confirmation of that medication by clerical and office support workers. Such practice is discouraged except when the physician, in their clinical judgment, deems that a medical need exists for a medication without regard to previous use.
[2024-02-19] MEDS: cefTRIAXone 2 GM in SODIUM CHLORIDE 0.9% MINIBAG 100 ML IV SCH (16:19)
--- NOTE | 2024-02-19 22:29 | PROVIDER PROGRESS NOTE ---
Assessment/Plan - Problem List (1) REUBEN (acute kidney injury) Assessment/Plan: Acute kidney injury has responded to IV fluids. Continue to monitor BUNs/creatinine. Renal Mass CT scan of the abdomen pelvis performed on February 18, 2024 revealed a right inferior pole exophytic mass suspicious for renal cell carcinoma. Urology has been consulted. Hypotension Resolved with IV fluids. Continue to monitor. Continue empiric antibiotic treatment with ceftriaxone. Enlarged Prostate Patient demonstrated urinary retention today and Bejarano has been placed. Continue Flomax 0.4 mg daily - Current Meds Current Meds: Current Medications Generic Name Dose Route Start Last Admin Trade Name Freq PRN Reason Stop Dose Admin Acetaminophen 650 mg 02/18/24 23:17 02/19/24 21:05 Acetaminophen 325 Mg Tablet PO 650 mg Q6H PRN Administration Pain 1 to 4, or Fever Ascorbic Acid 500 mg 02/19/24 09:00 02/19/24 08:50 Ascorbic Acid 500 Mg Tablet PO 500 mg DAILY NESSA Administration Diltiazem HCl 180 mg 02/19/24 09:00 02/19/24 21:05 Diltiazem Cd 180 Mg Capsule PO 180 mg BID NESSA Administration Docusate Sodium 100 mg 02/19/24 09:00 02/19/24 08:50 Docusate Sodium 100 Mg Capsule PO 100 mg DAILY NESSA Administration Lactated Ringer's 1,000 mls @ 100 mls/hr 02/18/24 23:45 02/19/24 21:08 Lr IV 100 mls/hr .Q10H NESSA Administration Ceftriaxone Sodium 2 gm/ 100 mls @ 200 mls/hr 02/19/24 17:00 02/19/24 17:01 Sodium Chloride IV Infused DAILY NESSA Infusion Lactobacillus Rhamnosus 1 cap 02/19/24 09:00 02/19/24 08:50 Lactobacillus Rhamnosus Gg Capsule PO 1 cap DAILY NESSA Administration Morphine Sulfate 1 mg 02/18/24 23:17 02/19/24 19:24 Morphine 2 Mg/Ml Carpuject IVP 1 mg Q2HR PRN Administration Pain 8 to 10 Multivitamins/Minerals 1 tab 02/19/24 08:00 02/19/24 08:50 Multivitamin W/Minerals Tablet PO 1 tab DAILYWM NESSA Administration Oxycodone HCl 5 mg 02/18/24 23:17 02/19/24 21:05 Oxycodone 5 Mg Tablet PO 5 mg Q6H PRN Administration Pain 5 to 7 Pantoprazole Sodium 40 mg 02/19/24 09:00 02/19/24 08:51 Pantoprazole 40 Mg Tablet PO 40 mg DAILY NESSA Administration Sodium Chloride 10 ml 02/19/24 01:00 02/19/24 16:19 Sodium Chloride Flush 0.9% 10 Ml Syringe IVP 10 ml 0100,0900,1700 NESSA Administration Tamsulosin HCl 0.4 mg 02/19/24 09:00 02/19/24 08:51 Tamsulosin 0.4 Mg Capsule PO 0.4 mg DAILY NESSA Administration - Lab Result Fish Bone Diagrams: 02/19/24 05:04 02/19/24 05:04 - Additional Planning My Orders: My Active Orders 02/19/24 09:00 Tamsulosin [Flomax] 0.4 mg PO DAILY 02/19/24 14:18 Bejarano Insertion [RC] QSHIFT 02/19/24 17:00 cefTRIAXone [Rocephin] 2 gm Sodium Chloride 0.9% Minibag [Normal Saline 0.9% Minibag] 100 ml IV DAILY Subjective - Subjective Patient Reports: Other (Alert. Denies chest pain, shortness of breath, abdominal pain. Does complain of pain in area of bladder) Objective Vital Signs: Vital Signs - 24 hr 02/18/24 02/19/24 02/19/24 23:00 00:00 05:16 Temperature 36.5 C 36.8 C Heart Rate 94 Heart Rate [ 77 84 Brachial] Respiratory 20 20 24 Rate Blood Pressure 132/92 H Blood Pressure 121/76 119/78 [Right Brachial artery] O2 Saturation 96 98 97 02/19/24 02/19/24 02/19/24 07:58 12:50 15:36 Temperature 36.8 C 37 C 36.7 C Heart Rate Heart Rate [ 60 72 91 Brachial] Respiratory 16 16 24 Rate Blood Pressure Blood Pressure 130/91 H 128/80 133/80 H [Right Brachial artery] O2 Saturation 99 96 97 02/19/24 20:00 Temperature 36.7 C Heart Rate Heart Rate [ 88 Brachial] Respiratory 20 Rate Blood Pressure Blood Pressure 132/73 H [Right Brachial artery] O2 Saturation 97 Oxygen O2 Source Room air I&O (Last 24 Hrs): Intake and Output Totals x24h 02/17/24 02/18/2402/18/24 23:59 23:59 23:59 Intake Total 8858.840 7995.000 Output Total 500 5125 Balance 850.000 -65.000 General: Alert, Oriented x3 HEENT: Atraumatic Neck: No JVD Neuro: Alert, Non Focal Cardiovascular: Other (Positive S1-S2 no extra heart sounds.) Respiratory: Other (Good air exchange in all lung viera no wheezing no crackles.) Abdomen: Normal bowel sounds, Soft, No tenderness Genitourinary: Normal Inspection, Other (Positive tenderness upon palpation in area of bladder) Extremities: No cyanosis, No edema - Results Results: Laboratory Results WBC 5.0 x10^3/uL (4.8-10.8) 02/19/24 05:04 RBC 4.40 10^6/uL (4.70-6.10) L 02/19/24 05:04 Hgb 13.1 g/dL (14.0-18.0) L 02/19/24 05:04 Hct 39.3 % (42.0-52.0) L 02/19/24 05:04 MCV 89.3 fL (80.0-94.0) 02/19/24 05:04 MCH 29.8 pg (27.0-31.0) 02/19/24 05:04 MCHC 33.3 g/dL (32.0-36.0) 02/19/24 05:04 RDW 13.2 % (12.0-15.0) 02/19/24 05:04 Plt Count 137 10^3/uL (130-450) 02/19/24 05:04 MPV 8.8 fL (7.4-11.4) 02/19/24 05:04 Neut # (Auto) 3.8 10^3/uL (1.5-6.6) 02/19/24 05:04 Lymph # (Auto) 0.7 10^3/uL (1.5-3.5) L 02/19/24 05:04 [place] # (Auto) 0.4 10^3/uL (0.0-1.0) 02/19/24 05:04 Eos # (Auto) 0.1 10^3/uL (0.0-0.7) 02/19/24 05:04 Baso # (Auto) 0.0 10^3/uL (0.0-0.1) 02/19/24 05:04 Absolute Nucleated RBC 0.00 x10^3/uL 02/19/24 05:04 Nucleated RBC % 0.0 /100WBC 02/19/24 05:04 Sodium 133 mmol/L (135-145) L 02/19/24 05:04 Potassium 3.8 mmol/L (3.5-4.5) 02/19/24 05:04 Chloride 106 mmol/L (101-111) 02/19/24 05:04 Carbon Dioxide 22 mmol/L (21-32) 02/19/24 05:04 Anion Gap 5.0 (6-13) L 02/19/24 05:04 BUN 14 mg/dL (6-20) 02/19/24 05:04 Creatinine 0.9 mg/dL (0.6-1.3) 02/19/24 05:04 Estimated GFR (MDRD) 85 (>89) L 02/19/24 05:04 Glucose 94 mg/dL (74-104) 02/19/24 05:04 Estimat Average Glucose 114 mg/dL (70-100) H 02/18/24 23:29 Hemoglobin A1c % 5.6 % (4.27-6.07) 02/18/24 23:29 Lactic Acid 2.4 mmol/L (0.5-2.2) H 02/18/24 15:41 Calcium 8.1 mg/dL (8.5-10.3) L 02/19/24 05:04 Magnesium 1.7 mg/dL (1.7-2.3) 02/19/24 05:04 Total Bilirubin 0.7 mg/dL (0.2-1.0) 02/19/24 05:04 AST 13 IU/L (10-42) 02/19/24 05:04 ALT 12 IU/L (10-60) 02/19/24 05:04 Alkaline Phosphatase 27 IU/L (42-121) L 02/19/24 05:04 Total Creatine Kinase 64 IU/L (30-223) 02/18/24 23:29 Total Protein 5.8 g/dL (6.4-8.9) L 02/19/24 05:04 Albumin 3.4 g/dL (3.2-5.5) 02/19/24 05:04 Globulin 2.4 g/dL (2.1-4.2) 02/19/24 05:04 Albumin/Globulin Ratio 1.4 (1.0-2.2) 02/19/24 05:04 Triglycerides 64 mg/dL (48-352) 02/18/24 23: Cholesterol 97 mg/dL (-200) 02/18/24 23: LDL Cholesterol, Calc 41 mg/dL (-129) 02/18/24 23: VLDL Cholesterol 13 mg/dL 02/18/24 23: HDL Cholesterol 43 mg/dL (60-) L 02/18/24 23: LDL/HDL Ratio 1.0 (<3.6) 02/18/24 23: Cholesterol/HDL Ratio 2.3 (<5.0) 02/18/24 23: Lipase 22 U/L (11-82) 02/18/24 15:41 TSH 0.76 uIU/mL (0.34-5.60) 02/18/24 23:29 Urine Color DARK YELLOW 02/18/24 17:15 Urine Clarity CLEAR (CLEAR) 02/18/24 17:15 Urine pH 6.5 PH (5.0-7.5) 02/18/24 17:15 Ur Specific [place] 1.010 (1.002-1.030) 02/18/24 17:15 Urine Protein NEGATIVE mg/dL (NEGATIVE) 02/18/24 17:15 Urine Glucose (UA) NEGATIVE mg/dL (NEGATIVE) 02/18/24 17:15 Urine Ketones NEGATIVE mg/dL (NEGATIVE) 02/18/24 17:15 Urine Occult Blood NEGATIVE (NEGATIVE) 02/18/24 17:15 Urine Nitrite NEGATIVE (NEGATIVE) 02/18/24 17:15 Urine Bilirubin NEGATIVE (NEGATIVE) 02/18/24 17:15 Urine Urobilinogen 0.2 (NORMAL) E.U./dL (NORMAL) 02/18/24 17:15 Ur Leukocyte Esterase NEGATIVE (NEGATIVE) 02/18/24 17:15 Ur Microscopic Review NOT INDICATED 02/18/24 17:15 Urine Culture Comments NOT INDICATED 02/18/24 17:15 Nasal Adenovirus (PCR) NOT DETECTED 02/18/24 20:38 Nasal B. parapertussis DNA (PCR) NOT DETECTED 02/18/24 20:38 Nasal Coronavir 229E PCR NOT DETECTED 02/18/24 20:38 Nasal Coronavir HKU1 PCR NOT DETECTED 02/18/24 20:38 Nasal Coronavir NL63 PCR NOT DETECTED 02/18/24 20:38 Nasal Coronavir OC43 PCR NOT DETECTED 02/18/24 20:38 Nasal Enterovir/Rhinovir PCR NOT DETECTED 02/18/24 20:38 Nasal Influenza B PCR NOT DETECTED 02/18/24 20:38 Nasal Influenza A PCR NOT DETECTED 02/18/24 20:38 Nasal Parainfluen 1 PCR NOT DETECTED 02/18/24 20:38 Nasal Parainfluen 2 PCR NOT DETECTED 02/18/24 20:38 Nasal Parainfluen 3 PCR NOT DETECTED 02/18/24 20:38 Nasal Parainfluen 4 PCR NOT DETECTED 02/18/24 20:38 Nasal RSV (PCR) NOT DETECTED 02/18/24 20:38 Nasal B.pertussis DNA PCR NOT DETECTED 02/18/24 20:38 Nasal C.pneumoniae (PCR) NOT DETECTED 02/18/24 20:38 Noe Human Metapneumo PCR NOT DETECTED 02/18/24 20:38 Nasal M.pneumoniae (PCR) NOT DETECTED 02/18/24 20:38 Nasal SARS-CoV-2 (PCR) NOT DETECTED 02/18/24 20:38
[2024-02-20] MEDS: HYDROmorphone 0.5 MG/0.5 ML SYRINGE IVP STA (01:52)
[2024-02-20] MEDS: METOPROLOL 5 MG/5 ML VIAL IVP STA (02:30)
[2024-02-20 05:10] LABS: BASOPHILS % (AUTO) 0.4 %; EOSINOPHILS # (AUTO) 0.2 10^3/uL (0.0-0.7); HCT - HEMATOCRIT 38.8 % (42.0-52.0); HGB - HEMOGLOBIN 13.1 g/dL (14.0-18.0); LYMPHOCYTES # (AUTO) 1.5 10^3/uL (1.5-3.5); LYMPHOCYTES % (AUTO) 27.3 %; MEAN CORPUSCULAR HGB CONC 33.8 g/dL (32.0-36.0); MEAN CORPUSCULAR VOLUME 88.8 fL (80.0-94.0); MEAN PLATELET VOLUME 8.7 fL (7.4-11.4); MONOCYTES # (AUTO) 0.6 10^3/uL (0.0-1.0); MONOCYTES % (AUTO) 11.1 %; NEUTROPHILS # (AUTO) 3.2 10^3/uL (1.5-6.6); PLT - PLATELET COUNT 138 10^3/uL (130-450); RED BLOOD COUNT 4.37 10^6/uL (4.70-6.10); RED CELL DISTRIBUTION WIDTH 13.1 % (12.0-15.0); WHITE BLOOD COUNT 5.4 x10^3/uL (4.8-10.8)
[2024-02-20 05:27] LABS: CALCIUM 8.5 mg/dL (8.5-10.3); CREATININE 0.8 mg/dL (0.6-1.3); MAGNESIUM 1.7 mg/dL (1.7-2.3); PHOSPHORUS 2.5 mg/dL (2.5-5.0); POTASSIUM 3.7 mmol/L (3.5-4.5)
[2024-02-20] MEDS: oxyCODONE 5 MG TABLET PO PRN (08:21)
[2024-02-20] MEDS: APIXABAN 5 MG TABLET PO SCH (10:08)
--- NOTE | 2024-02-20 14:41 | Discharge Plan ---
Discharge Plan Problem Reviewed?: Yes Disposition: Home, Self Care Condition: Stable Prescriptions: oxyCODONE [Roxicodone] 5 mg PO Q4HR PRN 7 Days #28 tab PRN Reason: Moderate Pain (Level 4-6) Diet: Cardiac Activity Restrictions: Activity as Tolerated Shower Restrictions: No Driving Restrictions: No Weight Bearing: Full Weight Instruction Topics: ED Prostate Enlarged, ED Catheter Care Bejarano Health Concerns: History of Present Illness: Gavino Ge is a 63-year-old man admitted on February 19, 2024 with a chief complaint of neck pain, headache and dizziness. On admission patient had nonspecific complaints of malaise and denied any history of fever or chills. Laboratory workup performed in the emergency room revealed a normal white blood cell count and normal hemoglobin/hematocrit. Chemistry panel revealed a creatinine of 1.2. Urinalysis was not consistent with infection. Liver function tests were normal. Total bilirubin was 0.8. Multiple imaging studies were performed in the emergency room. CT scan of the head was negative for acute intracranial pathology. CT angiogram of the head and neck was performed and did not reveal any significant intracranial arterial abnormality or any significant abnormality in the arteries of the neck. CT scan of the abdomen and pelvis revealed diverticulosis without evidence of acute diverticulitis. The study did demonstrate cholelithiasis with no evidence of acute cholecystitis. The main finding of the CT scan of the abdomen pelvis was an inferior pole exophytic mass of the right kidney. CT scan of the chest revealed that the thyroid is heterogeneous and mildly enlarged. TSH performed during admission is 0.76. CT scan of the chest also demonstrated no significant pathology of the lungs and pleura or mediastinal adenopathy. Abdominal ultrasound was performed which revealed a distended gallbladder with a large mobile stone. Hospital Course: Mr. Ge was admitted to the hospital and treatment was initiated with ceftriaxone for empiric antibiotic coverage.He received IV fluids for hydration.Blood cultures to date revealed 1 blood culture positive for Streptococcus epidermidis which is felt to be a contaminant. Mr. Ge reported difficulty urinating and bladder scan revealed a moderately enlarged bladder. He was unable to void and a Bejarano catheter has been placed.He will discharge with Bejarano in place. The patient's case was discussed with Dr. Gilmer Bell with regard to patient's right kidney mass and enlarged prostate and an appointment has been made for him to be seen in Dr. Bell's office on February 27 at 10 AM. During his hospitalization, patient's abdominal exam was benign and he denied any right upper quadrant tenderness on palpation. Patient is stable for discharge to home. CODE STATUS upon discharge: Full code Plan of Treatment: 1. Continue all medications as prescribed. 2. Please follow-up with Dr. Gilmer Bell on February 27 at 10 AM. Please arrive 30 minutes prior to appointment time. Office [facility] [address] [phone] 3. Please return to the emergency room or seek care in a clinic if you have fever of 101.5 or greater, chills or other symptoms that are concerning to you with regard to your health. 4. A 1 week supply of oxycodone has been prescribed. Recommend taking Colace or senna while taking opiates to avoid constipation. Colace and senna can be obtained [id number]. Care Goals: Goals of care are to workup the right kidney mass and also workup the etiology of the urinary bladder obstruction. Assessment: In summary, Gavino Ge is a 63-year-old man with a diagnosis of atrial fibrillation. He has been complaining of malaise and was admitted for workup and treated empirically for possible infection. An infectious etiology was not discovered and patient is discharged home with no antibiotics. Imaging studies did reveal a right kidney mass and also patient has significant urinary requiring discharge with a urinary catheter. Arrangements have been made for patient to follow-up with Dr. Gilmer Bell as an outpatient. No Smoking: If you smoke, Please STOP! Call for help. Follow-up with: Nicky Barrera MD [Primary Care Provider] -
--- NOTE | 2024-02-20 14:42 | DISCHARGE SUMMARY ---
Discharge Summary Admit Date: 02/18/24 Discharge Date: 02/20/24 Discharging Provider: Collins Pérez Primary Care Provider: Nicky Barrera MD Condition at Discharge: Stable Discharge Disposition: 01 Home, Self Care Discharge Facility Name: [facility] - DIAGNOSES Admission Diagnoses: 1. Sepsis 2. Cholelithiasis 3. Acute Kidney Injury 4. Renal Mass 5. Hypotension 6. Dizziness 7. Malaise Discharge Diagnoses with Status of Each Condition: 1. Acute Kidney Injury - resolved. 2. Right Renal Mass 3. Hypotension - resolved 4. Enlarged Prostate 5. Urinary Bladder Obstruction - HPI History of Present Illness: Gavino Ge is a 63-year-old man admitted on February 19, 2024 with a chief complaint of neck pain, headache and dizziness. On admission patient had nonspecific complaints of malaise and denied any history of fever or chills. Laboratory workup performed in the emergency room revealed a normal white blood cell count and normal hemoglobin/hematocrit. Chemistry panel revealed a creatinine of 1.2. Urinalysis was not consistent with infection. Liver function tests were normal. Total bilirubin was 0.8. Multiple imaging studies were performed in the emergency room. CT scan of the head was negative for acute intracranial pathology. CT angiogram of the head and neck was performed and did not reveal any significant intracranial arterial abnormality or any significant abnormality in the arteries of the neck. CT scan of the abdomen and pelvis revealed diverticulosis without evidence of acute diverticulitis. The study did demonstrate cholelithiasis with no evidence of acute cholecystitis. The main finding of the CT scan of the abdomen pelvis was an inferior pole exophytic mass of the right kidney. CT scan of the chest revealed that the thyroid is heterogeneous and mildly enlarged. TSH performed during admission is 0.76. CT scan of the chest also demonstrated no significant pathology of the lungs and pleura or mediastinal adenopathy. Abdominal ultrasound was performed which revealed a distended gallbladder with a large mobile stone. - HOSPITAL COURSE Hospital Course: Mr. Ge was admitted to the hospital and treatment was initiated with ceftriaxone for empiric antibiotic coverage.He received IV fluids for hydration.Blood cultures to date revealed 1 blood culture positive for Streptococcus epidermidis which is felt to be a contaminant. Mr. Ge reported difficulty urinating and bladder scan revealed a moderately enlarged bladder. He was unable to void and a Bejarano catheter has been placed. He will be discharged with Bejarano in place. The patient's case was discussed with Dr. Gilmer Bell with regard to patient's right kidney mass and enlarged prostate and an appointment has been made for him to be seen in Dr. Bell's office on February 27 at 10 AM. During his hospitalization, patient's abdominal exam was benign and he denied any right upper quadrant tenderness on palpation. Patient is stable for discharge to home. CODE STATUS upon discharge: Full code - ALLERGIES Allergies/Adverse Reactions: Allergies Allergy/AdvReac Type Severity Reaction Status Date / Time No Known Drug Allergies Allergy Verified 02/18/24 15:36 - MEDICATIONS Home Medications: Ambulatory Orders Medication Instructions Recorded Confirmed Melatonin 12 mg PO DAILY PM 04/19/21 02/19/24 Metoprolol Tartrate [Lopressor] 100 mg PO BID 04/19/21 02/19/24 Omeprazole Magnesium 20 mg PO DAILY 04/19/21 02/19/24 Rivaroxaban [Xarelto] 20 mg PO DAILY 04/19/21 02/19/24 dilTIAZem HCL [Tiazac] 180 mg PO BID 04/19/21 02/19/24 Trazodone HCl 200 mg PO HS 02/19/24 02/19/24 oxyCODONE [Roxicodone] 5 mg PO Q4HR PRN 7 Days #28 tab 02/20/24 - PHYSICAL EXAM AT DISCHARGE General Appearance: positive: No acute distress, Alert Eyes Bilateral: positive: Normal inspection, No lid inflammation, Conjunctivae nml Neck: positive: Trachea midline Respiratory: positive: Other (Good air exchange in all lung viera no wheezing no crackles.) Cardiovascular: positive: Other (Positive S1-S2 no extra heart sounds irregularly irregular) Abdomen: positive: Other (Soft, nondistended no guarding. Positive bowel sounds) Extremities: positive: Nml appearance, No pedal edema Neurologic/Psychiatric: positive: Oriented x3 - LABS Result Diagrams: 02/20/24 05:00 02/20/24 05:00 - FOLLOW UP Follow Up: 1. Please follow-up with Dr. Gilmer Bell on February 27, at 10 AM. He request that you arrive 30 minutes prior to the 10 AM appointment. 2. Please follow-up with Dr. And Dannhauer GONZALEZ in 2 to 4 weeks. - TIME SPENT Time Spent in Discharge (Minutes): 31
[2024-02-20 16:03] VITALS: BP 139/88; O2SAT 95
== END 2024-02-20 17:00 | disposition home or self-care (01) | DRG 872 ==
LOC: ED 14:52 → MS2 23:17
PROVIDERS: ADMIT Student in an Organized Health Care Education/Training Program; ATTEND Internal Medicine
DX: A41.9 Sepsis, unspecified organism (principal); N17.9 Acute kidney failure, unspecified; N13.8 Other obstructive and reflux uropathy; E87.20 Acidosis, unspecified; E87.1 Hypo-osmolality and hyponatremia; I95.9 Hypotension, unspecified; R53.83 Other fatigue; N28.89 Other specified disorders of kidney and ureter; N40.1 Benign prostatic hyperplasia with lower urinary tract symptoms; M54.2 Cervicalgia; K57.90 Diverticulosis of intestine, part unspecified, without perforation or abscess without bleeding; K80.20 Calculus of gallbladder without cholecystitis without obstruction; E04.9 Nontoxic goiter, unspecified; I11.0 Hypertensive heart disease with heart failure; I50.9 Heart failure, unspecified; E78.00 Pure hypercholesterolemia, unspecified; G47.30 Sleep apnea, unspecified; I48.91 Unspecified atrial fibrillation; K21.9 Gastro-esophageal reflux disease without esophagitis; F32.A Depression, unspecified; D72.829 Elevated white blood cell count, unspecified; E87.5 Hyperkalemia; R19.7 Diarrhea, unspecified; R33.8 Other retention of urine; R51.9 Headache, unspecified; Z20.822 Contact with and (suspected) exposure to COVID-19; Z79.01 Long term (current) use of anticoagulants; Z79.899 Other long term (current) drug therapy; Z87.440 Personal history of urinary (tract) infections; Z96.659 Presence of unspecified artificial knee joint
CPT/HCPCS: 36415; 70450; 70496; 70498; 71250; 74177; 76705; 80048; 80053; 80061; 81003; 82550; 83036; 83605; 83690; 83735; 84100; 84443; 85025; 87040; 87077; 87150; 87181; 87633; 97162; 97166; A9270; J1170; J3370; J7120; Q9967; 81001; 82945; 83721; 84157; 87070; 87086; 87205; 89051; 96365; 96366; 96368; 96375; 99285

== ENCOUNTER 2024-03-09 05:12 | Emergency (ER) | payer OTHER ==
[2024-03-09 05:48] LABS: BASOPHILS % (AUTO) 0.7 %; EOSINOPHILS # (AUTO) 0.2 10^3/uL (0.0-0.7); HCT - HEMATOCRIT 42.4 % (42.0-52.0); HGB - HEMOGLOBIN 13.7 g/dL (14.0-18.0); LYMPHOCYTES # (AUTO) 1.5 10^3/uL (1.5-3.5); MEAN CORPUSCULAR HEMOGLOBIN 29.1 pg (27.0-31.0); MEAN CORPUSCULAR HGB CONC 32.3 g/dL (32.0-36.0); MEAN PLATELET VOLUME 8.7 fL (7.4-11.4); MONOCYTES # (AUTO) 0.6 10^3/uL (0.0-1.0); MONOCYTES % (AUTO) 9.2 %; NEUTROPHILS # (AUTO) 3.7 10^3/uL (1.5-6.6); NEUTROPHILS % (AUTO) 61.8 %; PLT - PLATELET COUNT 214 10^3/uL (130-450); RED BLOOD COUNT 4.71 10^6/uL (4.70-6.10); RED CELL DISTRIBUTION WIDTH 13.5 % (12.0-15.0)
[2024-03-09 05:50] LABS: BILIRUBIN,URINE NEGATIVE (NEGATIVE); GLUCOSE, URINE (UA) NEGATIVE (NEGATIVE); KETONES,URINE (UA) NEGATIVE (NEGATIVE); LEUKOCYTE ESTERASE, URINE NEGATIVE (NEGATIVE); NITRITE,URINE NEGATIVE (NEGATIVE); OCCULT BLOOD,URINE NEGATIVE (NEGATIVE); PH,URINE 6.5 PH (5.0-7.5); PROTEIN,URINE NEGATIVE (NEGATIVE); UROBILINOGEN,URINE 0.2 (NORMAL) E.U./dL (NORMAL)
[2024-03-09 05:56] LABS: CLARITY,URINE CLEAR (CLEAR)
[2024-03-09 05:58] LABS: ALBUMIN 4.2 g/dL (3.2-5.5); ALBUMIN/GLOBULIN RATIO 1.4 (1.0-2.2); BILIRUBIN,TOTAL 0.5 mg/dL (0.2-1.0); CALCIUM 9.7 mg/dL (8.5-10.3); CREATININE 0.9 mg/dL (0.6-1.3); POTASSIUM 3.9 mmol/L (3.5-4.5); TOTAL PROTEIN 7.1 g/dL (6.4-8.9)
--- NOTE | 2024-03-09 06:03 | ED Physician Documentation ---
History of Present Illness - Stated complaint Stated Complaint: CHILLS/LWR ABD PX - Chief complaint Chief Complaint: Abd Pain - History obtained from History obtained from: Patient - Additonal information Additional information: The patient comes to the emergency department chief complaint of lower abdominal cramps, dysuria, and chills that is been going on for the last 2 months. He states he feels little worse over the last few days and so he decided to come in. His states that about a month ago he was admitted to the hospital for "septic shock", but that nobody could ever figure out why he had septic shock. Reviewing the records, it appears he was found to have a lactate of 2.4 and was mildly hypotensive and was admitted to the hospital here would be. He had extensive testing including blood cultures, multiple CT scans, and urinalysis, all of which were unremarkable. The patient was seen by Dr. Bell for his ongoing dysuria and has not seen him since as an outpatient. The patient states that today, he has not measured any fevers. Has some nausea but no vomiting. No chest pain. No other complaints at this time. He states that his lower abdominal pain is concentrated mostly suprapubically. He states [facility] who does not know why the patient continues to have pain and has told him that there is nothing else that he can do for him. PD PAST MEDICAL HISTORY - Past Medical History Cardiovascular: Congestive heart failure, Hypertension, High cholesterol, Atrial fibrillation Respiratory: Sleep apnea Neuro: Peripheral neuropathy Endocrine/Autoimmune: None GI: GERD : None HEENT: None Psych: Depression Musculoskeletal: None Derm: None - Past Surgical History General: Appendectomy, Colonoscopy Ortho: Knee replacement, Other - Present Medications Home Medications: Ambulatory Orders Medication Instructions Recorded Confirmed Melatonin 12 mg PO DAILY PM 04/19/21 03/09/24 Metoprolol Tartrate [Lopressor] 100 mg PO BID 04/19/21 03/09/24 Omeprazole Magnesium 20 mg PO DAILY 04/19/21 03/09/24 Rivaroxaban [Xarelto] 20 mg PO DAILY 04/19/21 03/09/24 dilTIAZem HCL [Tiazac] 180 mg PO BID 04/19/21 03/09/24 Trazodone HCl 200 mg PO HS 02/19/24 03/09/24 oxyCODONE [Roxicodone] 5 mg PO Q4HR PRN 7 Days #28 tab 02/20/24 03/09/24 - Allergies Allergies/Adverse Reactions: Allergies Allergy/AdvReac Type Severity Reaction Status Date / Time No Known Drug Allergies Allergy Verified 03/09/24 05:21 - Social History Does the pt smoke?: No Smoking Status: Never smoker Does the pt drink ETOH?: No Does the pt have substance abuse?: No PD ED PE NORMAL - Vitals Vital signs reviewed: Yes - General General: Alert and oriented X 3, No acute distress, Well developed/nourished - HEENT HEENT: Atraumatic, PERRL, Moist mucous membranes - Neck Neck: Supple, no meningeal sign - Cardiac Cardiac: RRR, No murmur - Respiratory Respiratory: No respiratory distress, Clear bilaterally - Abdomen Abdomen: Soft, Non distended, Other (Suprapubic tenderness, no rebound or guarding.) - Derm Derm: Normal color, Warm and dry, No rash - Extremities Extremities: No deformity, No edema - Neuro Neuro: Other (Alert, grossly intact) - Psych Psych: Normal mood, Normal affect Results - Vitals Vitals: Vital Signs - 24 hr 03/09/24 05:20 Temperature 36.7 C Heart Rate 84 Respiratory 16 Rate Blood Pressure 152/114 H O2 Saturation 99 Oxygen O2 Source Room air - EKG (time done) 0603 EKG releavant findings:: EKG personally interpreted by author of this note. Relevant findings are: Rate: Rate (enter#) (125) Rhythm: Atrial fibrillation [place]: Normal QRS: Normal Ischemia: Normal ST segments Compare to prior EKG: Unchanged from prior EKG Computer interpretation: Agree with computer - Labs Labs: Laboratory Tests 03/09/24 03/09/24 03/09/24 05:40 05:40 05:40 WBC 6.0 RBC 4.71 Hgb 13.7 L Hct 42.4 MCV 90.0 MCH 29.1 MCHC 32.3 RDW 13.5 Plt Count 214 MPV 8.7 Neut # (Auto) 3.7 Lymph # (Auto) 1.5 [place] # (Auto) 0.6 Eos # (Auto) 0.2 Baso # (Auto) 0.0 Absolute Nucleated RBC 0.00 Nucleated RBC % 0.0 Sodium 136 Potassium 3.9 Chloride 102 Carbon Dioxide 28 Anion Gap 6.0 BUN 12 Creatinine 0.9 Estimated GFR (MDRD) 85 L Glucose 105 H Calcium 9.7 Total Bilirubin 0.5 AST 20 ALT 17 Alkaline Phosphatase 44 Total Protein 7.1 Albumin 4.2 Globulin 2.9 Albumin/Globulin Ratio 1.4 Lipase 37 Urine Color YELLOW Urine Clarity CLEAR Urine pH 6.5 Ur Specific [place] <=1.005 Urine Protein NEGATIVE Urine Glucose (UA) NEGATIVE Urine Ketones NEGATIVE Urine Occult Blood NEGATIVE Urine Nitrite NEGATIVE Urine Bilirubin NEGATIVE Urine Urobilinogen 0.2 (NORMAL) Ur Leukocyte Esterase NEGATIVE Ur Microscopic Review NOT INDICATED Urine Culture Comments NOT INDICATED PD Medical Decision Making - ED course Complexity details: reviewed old records, reviewed results, re-evaluated patient, considered differential, d/w patient ED course: I reviewed the patient's records and found the patient had a had an elevated lactic acid level and mild hypotension but other than that, workup was completely negative, and continued to be so while the patient was in the hospital. Today, the patient did not have any vital sign abnormalities and they worked him up with labs, EKG, and urinalysis. The patient had been placed on the nuclear monitoring technician and was found to be in atrial fibrillation with a controlled rate. EKG demonstrated this as well, And patient stated that this was an existing issue for him. His rate was found to range between the 90s and low 100 here in the ED. The patient's entire workup was negative. I discussed with him the I am not sure what is been causing his symptoms over these last couple months but that at this point, we have not found anything serious or emergent going on. The patient has already been following with Dr. Bell of urology and is scheduled to have a cystoscopy with him in March. We have discussed the usual indications for return. Departure - Departure Disposition: 01 Home, Self Care Clinical Impression: Dysuria Abdominal pain Qualifiers: Abdominal location: lower abdomen, unspecified Qualified Code(s): R10.30 - Lower abdominal pain, unspecified Condition: Stable Instructions: ED Abdominal Pain Unkn Cause Male, ED Dysuria Uncertain Cause Comments: Your workup today looks good. It is not clear why you have had these months of lower abdominal discomfort and painful urination with chills but your urinalysis is completely negative. Your white blood cell count is normal and you do not have a fever here in the emergency department. Please follow-up with Dr. Bell as planned for your cystoscopy to further investigate the symptoms you have been having. Forms: PCP List
[2024-03-09 06:36] VITALS: BP 133/90; O2SAT 97
== END 2024-03-09 06:34 | disposition home or self-care (01) ==
LOC: ED 05:12
DX: R30.0 Dysuria (principal); R10.30 Lower abdominal pain, unspecified; I11.0 Hypertensive heart disease with heart failure; I50.9 Heart failure, unspecified; E78.00 Pure hypercholesterolemia, unspecified; I48.91 Unspecified atrial fibrillation; G47.30 Sleep apnea, unspecified; G62.9 Polyneuropathy, unspecified; Z79.899 Other long term (current) drug therapy
CPT/HCPCS: 36415; 80053; 81001; 81003; 83690; 85025; 87086; 93005; 99283; 99284

== ENCOUNTER 2024-03-13 15:45 | Outpatient (CLI) | payer OTHER ==
[2024-03-13 16:15] LABS: BILIRUBIN,URINE NEGATIVE (NEGATIVE); GLUCOSE, URINE (UA) NEGATIVE (NEGATIVE); KETONES,URINE (UA) NEGATIVE (NEGATIVE); LEUKOCYTE ESTERASE, URINE NEGATIVE (NEGATIVE); NITRITE,URINE NEGATIVE (NEGATIVE); OCCULT BLOOD,URINE NEGATIVE (NEGATIVE); PH,URINE 6.5 PH (5.0-7.5); PROTEIN,URINE NEGATIVE (NEGATIVE); UROBILINOGEN,URINE 0.2 (NORMAL) E.U./dL (NORMAL)
[2024-03-13 16:16] LABS: CLARITY,URINE CLEAR (CLEAR)
[2024-03-13 16:50] LABS: BACTERIA,URINE None Seen /HPF (None Seen); RBC,URINE None Seen /HPF (0-5); SQUAMOUS EPITHELIAL CELL,UR NONE SEEN (<= Few); WBC,URINE 0-3 /HPF (0-3)
== END 2024-03-13 15:46 | disposition home or self-care (01) ==
LOC: LAB 15:45
PROVIDERS: ATTEND Internal Medicine
DX: I48.91 Unspecified atrial fibrillation (principal); R50.9 Fever, unspecified; R53.81 Other malaise
CPT/HCPCS: 81001; 87040; 87086

== ENCOUNTER 2024-03-28 07:42 | Emergency (ER) | payer OTHER ==
[2024-03-28 08:16] LABS: BASOPHILS % (AUTO) 0.2 %; EOSINOPHILS # (AUTO) 0.1 10^3/uL (0.0-0.7); EOSINOPHILS % (AUTO) 0.6 %; HCT - HEMATOCRIT 39.6 % (42.0-52.0); HGB - HEMOGLOBIN 12.8 g/dL (14.0-18.0); LYMPHOCYTES # (AUTO) 2.9 10^3/uL (1.5-3.5); LYMPHOCYTES % (AUTO) 21.7 %; MEAN CORPUSCULAR HEMOGLOBIN 29.5 pg (27.0-31.0); MEAN CORPUSCULAR HGB CONC 32.3 g/dL (32.0-36.0); MEAN CORPUSCULAR VOLUME 91.2 fL (80.0-94.0); MEAN PLATELET VOLUME 8.9 fL (7.4-11.4); MONOCYTES # (AUTO) 0.8 10^3/uL (0.0-1.0); MONOCYTES % (AUTO) 5.7 %; NEUTROPHILS # (AUTO) 9.6 10^3/uL (1.5-6.6); NEUTROPHILS % (AUTO) 71.1 %; PLT - PLATELET COUNT 181 10^3/uL (130-450); RED BLOOD COUNT 4.34 10^6/uL (4.70-6.10); WHITE BLOOD COUNT 13.5 x10^3/uL (4.8-10.8)
[2024-03-28] MEDS: diltiaZEM INJ 5 MG/ML VIAL IVP STA (08:29)
--- NOTE | 2024-03-28 08:30 | ED Physician Documentation ---
PD HPI SYNCOPE - Stated complaint Stated Complaint: ABD PX,DIZZY,SYNCOPE - Chief complaint Chief Complaint: Neuro - History obtained from History obtained from: Patient - History of Present Illness Timing - onset: Today Preceding symptoms: Vision changes, Light headed, Generalized weakness Associated symptoms: Abdominal pain (suprapubic pain/fullness) Contributing factors: Recent med change (first dose of quietapine last night.), Just stood up Injury occurred: Fell. No: Head injury Similar symptoms before: Diagnosis (vasovagal syncope related to a medication) Recently seen: Clinic - Additional information Additional information: Gavino Ge is a 63-year-old male who is being evaluated for bladder and kidney cancer and he states that he has been manic recently and has talked to his psychiatrist and was placed on some quetiapine he took his first dose of this last night this morning he is feeling quite lightheaded and dizzy and had a syncopal episode. He is on a DOAC for atrial fibrillation and blood clots and he is uncertain whether he struck his head. Review of Systems Constitutional: denies: Fever Eyes: denies: Decreased vision Ears: denies: Ear pain Nose: denies: Congestion Throat: denies: Sore throat Cardiac: denies: Chest pain / pressure, Palpitations Respiratory: denies: Dyspnea, Cough GI: reports: Abdominal Pain : denies: Dysuria, Frequency Skin: denies: Rash Musculoskeletal: denies: Neck pain, Back pain, Extremity pain Neurologic: reports: Generalized weakness, Syncope. denies: Focal weakness, Numbness PD PAST MEDICAL HISTORY - Past Medical History Past Medical History: Yes Cardiovascular: Congestive heart failure, Hypertension, High cholesterol, Atrial fibrillation Respiratory: Sleep apnea Neuro: Peripheral neuropathy Endocrine/Autoimmune: None GI: GERD : None HEENT: None Psych: Depression Musculoskeletal: None Derm: None - Past Surgical History General: Appendectomy, Colonoscopy Ortho: Knee replacement, Other - Present Medications Home Medications: Ambulatory Orders Medication Instructions Recorded Confirmed Melatonin 12 mg PO DAILY PM 04/19/21 03/28/24 Metoprolol Tartrate [Lopressor] 100 mg PO BID 04/19/21 03/28/24 Omeprazole Magnesium 20 mg PO DAILY 04/19/21 03/28/24 Rivaroxaban [Xarelto] 20 mg PO DAILY 04/19/21 03/28/24 dilTIAZem HCL [Tiazac] 180 mg PO BID 04/19/21 03/28/24 Acyclovir 1 cap PO DAILY 03/28/24 03/28/24 Furosemide [Lasix] 1 tab PO DAILY 03/28/24 03/28/24 - Allergies Allergies/Adverse Reactions: Allergies Allergy/AdvReac Type Severity Reaction Status Date / Time No Known Drug Allergies Allergy Verified 03/28/24 07:55 - Social History Does the pt smoke?: No Smoking Status: Never smoker Does the pt drink ETOH?: No Does the pt have substance abuse?: No PD ED PE NORMAL - Vitals Vital signs reviewed: Yes (hypertensive and tachycardic ) - General General: Alert and oriented X 3, No acute distress, Well developed/nourished - HEENT HEENT: Atraumatic, PERRL, EOMI, Other (dry mucous membranes ) - Neck Neck: Supple, no meningeal sign, No bony TTP, Other (mild pain to the right lower paraspinous muscles. 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 intact, No motor deficit, No sensory deficit, Normal speech Eye Opening: Spontaneous Motor: Obeys Commands Verbal: Oriented GCS Score: 15 - Psych Psych: Normal mood, Normal affect Results - Vitals Vitals: Vital Signs - 24 hr 03/28/24 03/28/24 03/28/24 07:49 07:55 08:30 Temperature 36.4 C L Heart Rate 45 L 120 H 98 Respiratory 20 16 Rate Blood Pressure 123/90 H 132/85 H 119/81 H O2 Saturation 99 100 03/28/24 03/28/24 03/28/24 08:35 08:40 08:55 Temperature Heart Rate 87 80 80 Respiratory Rate Blood Pressure 116/83 H 121/77 98/77 O2 Saturation 03/28/24 03/28/24 03/28/24 09:47 10:07 10:30 Temperature Heart Rate 74 78 86 Respiratory 20 18 Rate Blood Pressure 113/73 106/85 H 109/81 H O2 Saturation 98 98 03/28/24 10:51 Temperature Heart Rate 86 Respiratory 18 Rate Blood Pressure 109/74 O2 Saturation 98 Oxygen O2 Source Room air - EKG (time done) 0807 EKG releavant findings:: EKG personally interpreted by author of this note. Relevant findings are: Rate: Rate (enter#) (120) Rhythm: Atrial fibrillation Compare to prior EKG: Changed from prior EKG (SPT 03-09-2024 the prolonged QT interval has resolvred. ) Computer interpretation: Agree with computer - Labs Labs: Laboratory Tests 03/28/24 03/28/24 03/28/24 08:08 08:08 08:08 WBC 13.5 H RBC 4.34 L Hgb 12.8 L Hct 39.6 L MCV 91.2 MCH 29.5 MCHC 32.3 RDW 14.0 Plt Count 181 MPV 8.9 Neut # (Auto) 9.6 H Lymph # (Auto) 2.9 Casey # (Auto) 0.8 Eos # (Auto) 0.1 Baso # (Auto) 0.0 Absolute Nucleated RBC 0.00 Nucleated RBC % 0.0 Sodium 135 Potassium 4.3 Chloride 100 L Carbon Dioxide 27 Anion Gap 8.0 BUN 17 Creatinine 1.3 Estimated GFR (MDRD) 56 L Glucose 143 H Calcium 9.7 Magnesium 2.0 Total Bilirubin 0.5 AST 18 ALT 17 Alkaline Phosphatase 39 L Troponin I High Sens 6.1 Total Protein 7.0 Albumin 4.3 Globulin 2.7 Albumin/Globulin Ratio 1.6 Lipase 82 Urine Color Urine Clarity Urine pH Ur Specific [place] Urine Protein Urine Glucose (UA) Urine Ketones Urine Occult Blood Urine Nitrite Urine Bilirubin Urine Urobilinogen Ur Leukocyte Esterase Ur Microscopic Review Urine Culture Comments 03/28/24 08:40 WBC RBC Hgb Hct MCV MCH MCHC RDW Plt Count MPV Neut # (Auto) Lymph # (Auto) Casey # (Auto) Eos # (Auto) Baso # (Auto) Absolute Nucleated RBC Nucleated RBC % Sodium Potassium Chloride Carbon Dioxide Anion Gap BUN Creatinine Estimated GFR (MDRD) Glucose Calcium Magnesium Total Bilirubin AST ALT Alkaline Phosphatase Troponin I High Sens Total Protein Albumin Globulin Albumin/Globulin Ratio Lipase Urine Color YELLOW Urine Clarity CLEAR Urine pH 7.0 Ur Specific [place] 1.010 Urine Protein NEGATIVE Urine Glucose (UA) NEGATIVE Urine Ketones NEGATIVE Urine Occult Blood NEGATIVE Urine Nitrite NEGATIVE Urine Bilirubin NEGATIVE Urine Urobilinogen 0.2 (NORMAL) Ur Leukocyte Esterase NEGATIVE Ur Microscopic Review NOT INDICATED Urine Culture Comments NOT INDICATED - Rads (name of study) head CT Relevant Findings:: Prelim report reviewed (Impression: No acute intracranial pathology.), EMP independent interpretation of test PD Medical Decision Making - ED course Complexity details: reviewed old records, reviewed results, re-evaluated patient, considered differential, d/w patient Reviewed Lab Results: We reviewed a complete blood count showing an elevated white blood cell count of 13.5 a hemoglobin low at 12.8 and hematocrit low at 39.6 these levels were similar to previous. Chemistry showed normal electrolytes normal kidney and liver function magnesium normal at 2.0. Urinalysis unremarkable. ED course: Gavino Ge is a 63-year-old male undergoing evaluation for bladder and kidney cancer who presents to the emergency department this morning with atrial fibrillation and rapid ventricular response and a syncopal episode which she feels is likely related to his use of quetiapine. We found the patient to be euvolemic on interrogation of the inferior vena cava this with POCUS and administered diltiazem 20 mg intravenously with resolution of his rapid atrial fibrillation. We found no other specific abnormalities to account for the syncopal episode. Patient strongly felt this was likely secondary to his medication and I have encouraged him to discontinue its use and follow-up with his psychiatrist for alternative agents. Departure - Departure Disposition: 01 Home, Self Care Clinical Impression: Atrial fibrillation with RVR, Syncope and collapse, Medication side effect Condition: Stable Instructions: ED Afib, ED Syncope Vasovagal Follow-Up: Nicky Barrera MD [Primary Care Provider] - Comments: Gavino, today we did not find additional problems to suggest something other than a medication side effect to cause this syncopal episode. My recommendation is to discontinue the use of the quetiapine and follow-up with your psychiatrist about alternative agents. Follow-up with the urologist as planned. Today we did not find evidence of urinary tract infection or urinary retention. Forms: PCP List Discharge Date/Time: 03/28/24 10:50
[2024-03-28 08:33] LABS: ALBUMIN 4.3 g/dL (3.2-5.5); ALBUMIN/GLOBULIN RATIO 1.6 (1.0-2.2); BILIRUBIN,TOTAL 0.5 mg/dL (0.2-1.0); CALCIUM 9.7 mg/dL (8.5-10.3); CREATININE 1.3 mg/dL (0.6-1.3); POTASSIUM 4.3 mmol/L (3.5-4.5)
[2024-03-28] MEDS: SODIUM CHLORIDE 0.9% 1,000 ML IV STA (08:33)
[2024-03-28 08:35] LABS: TROPONIN I HIGH SENSITIVITY 6.1 ng/L (2.3-19.7)
[2024-03-28 08:45] LABS: BILIRUBIN,URINE NEGATIVE (NEGATIVE); GLUCOSE, URINE (UA) NEGATIVE (NEGATIVE); KETONES,URINE (UA) NEGATIVE (NEGATIVE); LEUKOCYTE ESTERASE, URINE NEGATIVE (NEGATIVE); NITRITE,URINE NEGATIVE (NEGATIVE); OCCULT BLOOD,URINE NEGATIVE (NEGATIVE); PROTEIN,URINE NEGATIVE (NEGATIVE); UROBILINOGEN,URINE 0.2 (NORMAL) E.U./dL (NORMAL)
[2024-03-28 08:48] LABS: CLARITY,URINE CLEAR (CLEAR)
--- NOTE | 2024-03-28 09:01 | CT Report ---
PROCEDURE: Head WO INDICATIONS: syncope, collapse, DOAC TECHNIQUE: Noncontrast 4.5 mm thick angled axial sections acquired from the foramen magnum to the vertex. For r adiation dose reduction, the following was used: automated exposure control, adjustment of mA and/or kV according to patient size. COMPARISON: CT head, 02/18/2024. FINDINGS: Image quality: Excellent. CSF spaces: Basal cisterns are patent. No extra-axial fluid collections. Ventricles are normal in size and shape. Brain: No midline shift. No intracranial masses or hemorrhage. Mild cerebral volume loss for age. M ild periventricular white matter chronic small vessel ischemic changes [place]-white matter interface is normal. Skull and face: Calvarium and visualized facial bones are intact, without suspicious lesions. Sinuses: Visualized sinuses and mastoids are clear. IMPRESSION: No acute intracranial pathology. Reviewed by: Sage Greco MD on 03/28/2024 9:00 AM PDT Approved by: Sage Greco MD on 03/28/2024 9:00 AM PDT Station ID: [id number]
--- NOTE | 2024-03-28 09:48 | XRAY Report ---
PROCEDURE: Chest 1V INDICATIONS: syncope TECHNIQUE: One view of the chest was acquired. COMPARISON: Correlation is made with chest CT, 02/18/2024 FINDINGS: Surgical changes and devices: None. Lungs and pleura: No pleural effusions or pneumothorax. Lungs are clear. Mediastinum: Mediastinal contours appear normal. Heart size is normal. Bones and chest wall: No suspicious bony lesions. Age-appropriate degenerative changes are seen. O verlying soft tissues appear unremarkable. IMPRESSION: Portable chest within normal limits for age. Reviewed by: Dakota Briseno MD on 03/28/2024 8:46 AM MIGUEL Approved by: Dakota Briseno MD on 03/28/2024 8:46 AM MIGUEL Station ID: [id number]
[2024-03-28 09:55] VITALS: O2SAT 98
[2024-03-28 10:59] VITALS: BP 109/74
== END 2024-03-28 10:50 | disposition home or self-care (01) ==
LOC: ED 07:42
DX: R55 Syncope and collapse (principal); T43.595A Adverse effect of other antipsychotics and neuroleptics, initial encounter; I48.91 Unspecified atrial fibrillation; Z79.01 Long term (current) use of anticoagulants
CPT/HCPCS: 36415; 80053; 81001; 81003; 83690; 83735; 84484; 85025; 87086; 93005; 96374; 99284

== ENCOUNTER 2024-04-06 11:52 | Day surgery (SDC) | payer OTHER ==
[2024-04-06] MEDS ORDERED: ceFAZolin 2 GM VIAL ONE (11:57)
[2024-04-06] MEDS: LACTATED RINGERS 1,000 ML IV ONE ×2 (12:23→14:27)
[2024-04-06] MEDS ORDERED: iohexoL-240 10 ML VIAL IVP ONE (12:30)
[2024-04-06] MEDS ORDERED: LIDOCAINE 2% URO-JET 5 ML SYRINGE UR ONE (12:30)
[2024-04-06] MEDS ORDERED: fentaNYL 100 MCG/2 ML VIAL IVP PRN (12:46)
[2024-04-06] MEDS ORDERED: NALOXONE 0.4 MG/ML VIAL IVP PRN (12:46)
[2024-04-06] MEDS ORDERED: MORPHINE 2 MG/ML CARPUJECT IVP PRN (12:46)
[2024-04-06] MEDS ORDERED: HYDROmorphone 0.5 MG/0.5 ML SYRINGE IVP PRN (12:46)
[2024-04-06] MEDS ORDERED: METOCLOPRAMIDE 10 MG/2 ML VIAL IVP PRN (12:46)
[2024-04-06] MEDS ORDERED: ATROPINE ABBOJECT 1 MG/10 ML SYRINGE IVP PRN (12:46)
[2024-04-06] MEDS ORDERED: ONDANSETRON 4 MG/2 ML VIAL IVP PRN ×2 (12:46→14:01)
[2024-04-06] MEDS ORDERED: ePHEDrine 50 MG/ML VIAL IVP PRN (12:46)
--- NOTE | 2024-04-06 12:46 | ANESTHESIA ---
Pre-Anesthesia VS, & Labs - Diagnosis bladder lesion - Procedure cysto with bladder biopsy Vital Signs: Temp Pulse Resp BP Pulse Ox O2 Flow Rate 36.6 C 91 16 138/88 H 98 04/06/24 12:14 04/06/24 12:14 04/06/24 12:14 04/06/24 12:14 04/06/24 12:14 Height: 6 ft 5 in Weight (kg): 121.7 kg Body Mass Index: 31.8 BMI Classification: Obese - NPO >8 hours - Lab Results Lab results reviewed: Yes Home Medications and Allergies Home Medications: Ambulatory Orders Potassium Chloride [Micro-K] 10 meq PO DAILY 03/30/24 Tamsulosin [Flomax] 0.4 mg PO DAILY 03/30/24 lamoTRIgine [Lamictal Odt] 100 mg PO DAILY 03/30/24 Melatonin 12 mg PO DAILY PM 04/19/21 Metoprolol Tartrate [Lopressor] 100 mg PO BID 04/19/21 Omeprazole Magnesium 20 mg PO DAILY 04/19/21 Rivaroxaban [Xarelto] 20 mg PO DAILY 04/19/21 dilTIAZem HCL [Tiazac] 60 mg PO BID 04/19/21 Acyclovir 400 mg PO DAILY 03/28/24 Furosemide [Lasix] 20 mg PO DAILY 03/28/24 Potassium Chloride [Micro-K] 10 meq PO DAILY 03/30/24 Tamsulosin [Flomax] 0.4 mg PO DAILY 03/30/24 lamoTRIgine [Lamictal Odt] 100 mg PO DAILY 03/30/24 Allergies/Adverse Reactions: Allergies Allergy/AdvReac Type Severity Reaction Status Date / Time No Known Drug Allergies Allergy Verified 03/28/24 07:55 Anes History & Medical History - Anesthetic History Anesthesia Complications: reports: No previous complications Family history of Anesthesia Complications: Denies Family history of Malignant Hyperthermia: Denies - Medical History Cardiovascular: reports: Congestive heart failure, Hypertension, High cholesterol, Deep vein thrombosis, Atrial fibrillation Pulmonary: reports: Sleep apnea Gastrointestinal: reports: GERD Urinary: reports: Benign prostate hypertrophy, Retention, Chronic bladder infection Neuro: reports: Peripheral neuropathy Musculoskeletal: reports: Osteoarthritis, Other Endocrine/Autoimmune: reports: None Skin: reports: None Smoking Status: Never smoker - Surgical History General: reports: Appendectomy, Colonoscopy Eyes Ears Nose Throat (EENT): reports: Cataracts Orthopedic: reports: Knee replacement, Other Exam General: Alert, Oriented x3, Cooperative Dental: WNL Mouth Openin Fingerbreadth Neck Mobility: Normal Mallampati classification: II Thyromental Distance: 4-6 cm Respiratory: Lungs clear, Normal breath sounds, No respiratory distress Cardiovascular: Other (AF) Neurological: Normal speech Mental/Cognitive Status: Alert/Oriented X3, Normal for patient Cognitive Status: Within normal limits Plan Anesthesia Type: General Consent for Procedure(s) Verified and Reviewed: Yes Code Status: Attempt Resuscitation ASA classification: 3-Severe systemic disease Is this case an emergency?: No
[2024-04-06] MEDS ORDERED: LACTATED RINGERS 1,000 ML IV SCH (13:00)
[2024-04-06] MEDS ORDERED: MIDAZOLAM 2 MG/2 ML VIAL ONE (13:01)
[2024-04-06] MEDS ORDERED: LIDOCAINE-PF 2% 10 ML AMP SUBQ ONE (13:01)
[2024-04-06] MEDS ORDERED: fentaNYL 100 MCG/2 ML VIAL ONE (13:01)
[2024-04-06] MEDS ORDERED: PROPOFOL 200 MG/20 ML VIAL IVP ONE ×2 (13:02→13:57)
[2024-04-06] MEDS ORDERED: DEXAMETHASONE 4 MG/ML VIAL ONE (13:58)
[2024-04-06] MEDS ORDERED: ONDANSETRON 4 MG/2 ML VIAL ONE (13:58)
--- NOTE | 2024-04-06 14:07 | Discharge Plan ---
Discharge Plan Problem Reviewed?: Yes Disposition: Home, Self Care Condition: Good Prescriptions: Docusate Sodium 100Mg Capsule [Colace 100Mg Capsule] 100 mg PO DAILY #7 cap oxyCODONE [Roxicodone] 5 mg PO Q4H PRN #10 tablet PRN Reason: Pain Diet: Regular Activity Restrictions: Additional Comments (as instructed) Instruction Topics: Transurethral Bladder Biopsy Additional Instructions or Follow Up instructions: You have a follow-up appoint with Dr. Bell on April 17 at 1 PM please arrive 15 minutes early No Smoking: If you smoke, Please STOP! Call for help.
--- NOTE | 2024-04-06 14:09 | OPERATIVE REPORT ---
Operative Report - General Procedure Date: 04/06/24 Planned Procedure: Cystoscopy, bladder biopsy Pre-Op Diagnosis: Bladder lesion Procedure Performed: Cystoscopy, bladder biopsy Post Op Diagnosis: Bladder lesion - Procedure Note Primary Surgeon: Ray Anesthesia Provider: CHICA Duff Anesthesia Technique: General LMA Pathology: bladder lesion Estimated Blood Loss (mL): 0 Findings: Atypical erythematous appearing mucosa on posterior wall bladder Complications: none - Other Other Information/Narrative: After informed sent was obtained the patient was brought to the OR and laid the supine position. The patient was anesthetized per anesthesia protocols and prepped draped in usual sterile fashion in the dorsolithotomy position. A formal timeout was performed confirming the patient and procedure. A 26 [place] 6 scope was advanced easily into urinary bladder. The bladder inspected and full and there were some erythematous lesions on the posterior wall of the bladder. The ureteral orifices were orthotopic. There were no other obvious papillary lesions or other concerns in the bladder. His prostate was moderately enlarged with lateral lobe hypertrophy and no median lobe. Using a loop electrocautery with the bipolar setting we resected a small portion of these erythematous lesions approximately 0.5 mm x 0.5 mm. Spot cautery was used for hemostasis. The bladder was emptied and Uro-Jet was placed. This concluded procedure and the patient tolerated the procedure well. He will follow-up in 2 weeks time for pathology discussion
[2024-04-06] MEDS: LIDOCAINE 2% URO-JET 5 ML SYRINGE UR ONE (14:17)
[2024-04-06] MEDS ORDERED: oxyCODONE 5 MG TABLET ONE (14:25)
[2024-04-06] MEDS: oxyCODONE 5 MG TABLET PO PRN (14:28)
[2024-04-06 14:54] VITALS: O2SAT 100
[2024-04-06 15:04] VITALS: BP 116/95
== END 2024-04-06 11:53 | disposition home or self-care (01) ==
LOC: SDS 11:52
PROVIDERS: ATTEND Urology
PROC: 0TBB8ZX Excision of Bladder, Via Natural or Artificial Opening Endoscopic, Diagnostic (ICD-10-PCS; principal; 2024-04-06 13:30)
DX: N32.89 Other specified disorders of bladder (principal); N40.1 Benign prostatic hyperplasia with lower urinary tract symptoms; R33.8 Other retention of urine; I11.0 Hypertensive heart disease with heart failure; I50.9 Heart failure, unspecified; I48.91 Unspecified atrial fibrillation; E66.9 Obesity, unspecified; Z68.31 Body mass index [BMI] 31.0-31.9, adult; G47.30 Sleep apnea, unspecified
CPT/HCPCS: 52204; A9270; J7120; Q9966

== ENCOUNTER 2024-08-12 10:38 | Outpatient (CLI) | payer OTHER ==
--- NOTE | 2024-08-12 16:37 | XRAY Report ---
PROCEDURE: Cervical Spine 2-3V INDICATIONS: SPINAL STENOSIS, CERVICAL REGION TECHNIQUE: 3 view(s) of the cervical spine were acquired. COMPARISON: MR cervical spine 09/02/2023 FINDINGS: Bones: No fractures or dislocations to the C7-T1 level. The lateral masses of C1 appear intact on t he odontoid view. No suspicious bony lesions. Multilevel degenerative disc space narrowing most sev ere at C6-7. Multilevel bridging anterior osteophytes are present from C4 through C7. Multilevel unco vertebral arthropathy is present most severe from C5 through C7. Soft tissues: No prevertebral soft tissue swelling. IMPRESSION: Multilevel degenerative changes most severe from C5 through C7. Reviewed by: Deanna River MD on 08/12/2024 4:36 PM PDT Approved by: Deanna River MD on 08/12/2024 4:36 PM PDT Station ID: [id number]
== END 2024-08-12 10:39 | disposition home or self-care (01) ==
LOC: DI.N 10:38
PROVIDERS: ATTEND Student in an Organized Health Care Education/Training Program
DX: M47.812 Spondylosis without myelopathy or radiculopathy, cervical region (principal); M50.31 Other cervical disc degeneration, high cervical region; M25.78 Osteophyte, vertebrae